=== PATIENT | female | born 1995 | race Caucasian/White ===

== ENCOUNTER 2023-07-08 15:19 | Outpatient (CLI) | payer MEDICAID, SELFPAY ==
[2023-07-08 18:50] LABS: Chlamydia DNA Amplified* NOT DETECTED (No Detected); GC DNA Amplified* NOT DETECTED (No Detected)
== END 2023-07-08 15:20 | disposition home or self-care (01) ==
PROVIDERS: Visit Provider Physician Assistant
DX: Z34.92 Encounter for supervision of normal pregnancy, unspecified, second trimester (principal); Z3A.15 15 weeks gestation of pregnancy
CPT/HCPCS: 76815; 86592; 86703; 86762; 86787; 86803; 86850; 86900; 86901; 87086; 87340; 87491; 87591

== ENCOUNTER 2023-08-05 12:55 | Outpatient (CLI) | payer MEDICAID, SELFPAY ==
--- NOTE | 2023-08-05 13:00 | CRLHL7_ITS ---
For Patients: As a result of the Century Cures Act, medical imaging exams and procedure reports are released immediately into your electronic medical record. You may view this report before your referring provider. If you have questions, please contact your health care provider. OB ULTRASOUND CLINICAL HISTORY: anatomy screen. LMP: 03/24/2023. HAYDER by LMP: 12/29/2023. GA: 19 w, 1 d. FINDINGS: position: Vertex. Cervix: Visualized. Technique: Transabdominal. Length of closed cervix: 3.5 cm. Placenta/cord: Posterior. Technique: Transabdominal. Placenta tip to internal OS: 3.3 cm. Umbilical Cord: 3-vessel cord. Placenta insertion: Central. Amniotic Fluid: 4.6 cm SDP (greater than/equal to: 2- less than 8 cm). SURVEY: Observed Structures Cerebellum: 1.9 cm, 19 w 2 d. Cisterna Magna: 3.1 mm. Nuchal Fold: 4.2 mm. Lateral Ventricle: 67 mm. CSP: Yes. Midline Falx: Yes. Choroid Plexus: Yes. Spine: Yes. Abdomen: Stomach: Yes. Abd Cord Insertion: Yes. Urinary Bladder: Yes. Kidneys: Yes. Diaphragm: Yes. Face: Nose/lips: Yes. Orbital view: Yes. Profile: Yes. Limbs: Upper Extremities: Yes. Lower Extremities: Yes. Hands: Yes. Feet: Yes. Vascular: Four-Chamber Heart: Yes. LVOT: Yes. RVOT: Yes. BPD: 4.0 cm. 18 w 1 d, 12 percent. HC: 15.2 cm. 18 w 1 d, 7 percent. AC: 12.6 cm. 18 w 1 d, 17 percent. FL: 2.7 cm. 18 w 0 d, 11 percent. FL/AC: 21.06 percent. HC/AC Ratio: 1.21. Heart rate: 144 beats per minute. age by this US: 18 w 2 d. HAYDER by this US: 01/04/2024. EFW: 224.96 g. Weight: 0 lbs, 8 oz. Percentile by HAYDER: 6 percent. IMPRESSION: 1. Single live intrauterine gestation. No gross anomalies visualized. 2. Estimated weight measures 225 grams which lies at the 6th percentile. Shandra Puga M.D. Diagnostic/Breast Radiologist [email or web address] Transcribed: 12:03 pm DW/Dictated by: Shandra Puga MD @ 08/06/2023 5:25:00 AM (Electronically Signed)
== END 2023-08-05 12:56 | disposition home or self-care (01) ==
LOC: US 12:55
PROVIDERS: Visit Provider Physician Assistant
DX: Z34.92 Encounter for supervision of normal pregnancy, unspecified, second trimester (principal); Z3A.19 19 weeks gestation of pregnancy
CPT/HCPCS: 76805

== ENCOUNTER 2023-09-02 13:06 | Outpatient (CLI) | payer MEDICAID, SELFPAY ==
--- NOTE | 2023-09-02 13:00 | CRLHL7_ITS ---
For Patients: As a result of the Century Cures Act, medical imaging exams and procedure reports are released immediately into your electronic medical record. You may view this report before your referring provider. If you have questions, please contact your health care provider. INDICATION: Growth restricted at anatomy scan COMPARISON: 08/05/2023 TECHNIQUE: Real time serrano scale imaging of the fetus was performed. FINDINGS: Sonographic imaging demonstrates a single living intrauterine gestation. Fetus demonstrates a regular cardiac rate of 142 beats per minute. Fetus has a variable position. The placenta lies posteriorly. Amniotic fluid volume appears normal and there is a single deepest vertical pocket: 4.8 cm. The estimated weight is 558gm which lies at the 37th %. On the prior OB ultrasound exam dated 08/05/2023 the estimated weight was at the 6th%. BPD 20th percentile. HC 22nd percentile. AC 63rd percentile. FL 13th percentile. The HC/AC ratio measures 1.09 range (1.05-1.21). IMPRESSION: Sonographic gestational age 22 weeks 6 days and sonographic due date 12/31/2023. Good correlation with dates. Estimated weight 37th percentile. Abdominal circumference 63rd percentile for Dictated by Steven Bowman MD @ 09/02/2023 2:38:41 PM (Electronically Signed)
== END 2023-09-02 13:07 | disposition home or self-care (01) ==
LOC: US 13:06
PROVIDERS: Visit Provider Obstetrics & Gynecology
DX: O36.5990 Maternal care for other known or suspected poor fetal growth, unspecified trimester, not applicable or unspecified (principal); Z3A.22 22 weeks gestation of pregnancy
CPT/HCPCS: 76816

== ENCOUNTER 2023-09-30 14:13 | Outpatient (CLI) | payer MEDICAID, SELFPAY | END 2023-09-30 14:14 | disposition home or self-care (01) | LOC: NFLDREF 10-04 21:42 | PROVIDERS: Visit Provider Obstetrics & Gynecology | DX: Z34.90 Encounter for supervision of normal pregnancy, unspecified, unspecified trimester (principal) | CPT/HCPCS: 86592 ==

== ENCOUNTER 2023-12-05 10:45 | Outpatient (CLI) | payer MEDICAID, SELFPAY | END 2023-12-05 10:46 | disposition home or self-care (01) | LOC: NFLDREF 12-09 11:14 | PROVIDERS: Visit Provider Obstetrics & Gynecology | DX: Z36.85 Encounter for antenatal screening for Streptococcus B (principal) | CPT/HCPCS: 87081; 87653 ==

== ENCOUNTER 2024-01-05 06:26 | Inpatient (IN) | payer MEDICAID, SELFPAY ==
[2024-01-05] VITALS (135 sets, daily range): BP systolic 73–169; BP diastolic 37–100; PULSE 67–104; RESP 16–17; TEMP 36.8–37.6; O2SAT 96–100; BMI 35.7
[2024-01-05 07:08] LABS: Basophils Absolute Auto 0.01 K/uL (0.00-0.30); Basophils Percent Auto 0.1 % (0.0-3.0); Eosinophils Absolute Auto 0.02 K/uL (0.00-0.50); Eosinophils Percent Auto 0.2 % (0.0-7.0); Hematocrit 32.7 % (33.0-51.0); Hemoglobin* 10.7 gm/dL (12.0-16.0); Immature Granulocytes Abs Auto 0.02 K/uL (0.00-0.30); Immature Granulocytes Pct Auto 0.2 %; Lymphocytes Absolute Auto 2.16 K/uL (0.90-2.90); Lymphocytes Percent Auto 25.7 % (20-44); Mean Corpuscular HGB Conc 33 gm/dL (32-36); Mean Corpuscular Hemoglobin 28 pg (26-34); Mean Corpuscular Volume 85 fL (80-100); Monocytes Percent Auto 6.4 % (0.0-11.0); Neutrophils Absolute Auto 5.65 K/uL (1.7-7.0); Neutrophils Percent Auto 67.4 % (42.0-72.0); Platelet Count* 300 K/uL (140-440); RDW Coefficient of Variation % 14.5 % (11.5-15.5); Red Blood Count 3.86 m/uL (4.00-5.20)
[2024-01-05 07:21] LABS: Slide Review Reflex No
[2024-01-05 07:47] LABS: Alanine Aminotransferase* 20 U/L (4-35); Aspartate Amino Transferase* 32 U/L (12-35); Blood Urea Nitrogen* 12 mg/dL (5-24); Creatinine* 0.6 mg/dL (0.5-1.5); Est. Creatinine Clearance* 109.42; Estimated Glomerular Filt Rate 125 ml/min
--- NOTE | 2024-01-05 07:48 | W.PM.LDBA ---
Subjective History of Present Illness Date Seen: 01/05/24 Narrative: Patient is being admitted to Labor and Delivery for IOL for post term dates . She is a 28 year old at 41 0/7 weeks gestation. Her full history and physical was dictated by Dr. ADAMSON on 12/14/23. Please see this for details. Specific Issues/Plans Significant other: Davi. Baby: Boy! Yogi H&P completed by SN[facility] on 12/14/2023 1. Late to care, 1st visit 15+1 2. History of depression / anxiety, has never been on medication 3. Obesity, BMI 31.3 Hemoglobin A1c: 4.7% ASA 81 mg 4. Sister's daughter: Cleft lip 5. Growth Restriction (Resolved), EFW 6% on anatomy US at 19w1d - Reliable dating by LMP (certain) consistent with 15 week US - No anatomic anomalies - Past medical and social history reviewed, no reported risk factors - Level 2 US with [facility] [place] 08/16/23: EFW 18%, AC 35%. Posterior placenta without previa. Normal anatomy. - Repeat US for growth 23 weeks here: EFW 37%, AC 63%. 6. GERD. Omeprazole 20 mg sent 09/02/23. 7. 07/08/2023 Pap at her 1st visit: Normal with positive HPV for other high risk types or types Pap at her 6 week visit with HPV Co-testing If the Pap is abnormal or the HPV is positive she should have a colposcopy. Flu: declines Tdap: Given, 10/21/23 RSV: Given on 11/07/2023 OB - Problem Based A/P Additional Plan (1) Encounter for induction of labor: Status: Acute Plan 1. IOL due to post term dates, favorable cervix, GBS negative. AROM and start oxytocin. 2. Elevated blood pressure upon admission, will collect preeclampsia labs and continue close monitoring of vital signs. 3. Patient plans to get epidural for pain management. OB Result Labs Labs: Hgb:10.7mg/dL. Normal platelets Chemistry pending OB Exam Physical Exam Vital signs: Pulse BP 75 136/93 H 01/05/24 07:28 01/05/24 07:28 Detailed Labor and Delivery Exam Patient Gravid: Yes Dilation (cm): 5 Effacement (%): 90 Cervix position: anterior Consistency: soft Tachysystole: No Contraction intensity: Mild Fetus (Single) Station: -1 Amniotic Membrane Status: AROM Amniotic Membrane Fluid Description: Clear Heart Rate Baseline: 120 Monitor Accelerations: Present Monitor Decelerations: Variable (Once during AROM) Newspaper Carriers Supervisor Variability: Moderate (6-25)
[2024-01-05] MEDS: OXYTOCIN 30 unit/500 ML in NS 30 UNIT/500 ML BAG IVPB (08:03)
[2024-01-05] MEDS: LACTATED RINGERS 1000 ML 1,000 ML 125 ML IV (08:05)
[2024-01-05] MEDS: LABETALOL HCL 5 MG/ML inj IVP (11:19)
[2024-01-05] MEDS: ROPIVACAINE 0.2% 100 ml 100 ML 12 MG EPIDURAL ×2 (11:21→19:33)
[2024-01-05] MEDS: LACTATED RINGERS 1000 ML 1,000 ML 75 ML IV ×2 (11:25→15:39)
[2024-01-05] MEDS: MAGNESIUM IV 4 GM/100 ML PIGGYBACK IVPB (11:41)
[2024-01-05] MEDS: PHENYLEPHRINE 100 MCG/ML SYRINGE IVP ×3 (12:01→13:08)
--- NOTE | 2024-01-05 12:13 | PM.ANBPRC ---
[facility] Medical History Anxiety ?F41.9 - Anxiety disorder, unspecified (ICD-10) Depression ?F32.A - Depression, unspecified (ICD-10) Surgical History H/O foot surgery ?Z98.890 - Other specified postprocedural states (ICD-10) Family History Maternal Grandmother High blood pressure Paternal Grandmother Diabetes Paternal Grandfather Diabetes Aunt Diabetes Social History Narrative: History of blood transfusion: No. 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 Marital status: Significant other. Hinduism/cultural needs: no. Chemical or radiation exposure: no. Pre- tobacco use: no. Pre- alcohol use: no. Current tobacco use: no. Current alcohol use: no. Recreational drug use: no. Dietary restrictions: no. Blood transfusion acceptable in an emergency: yes. PSYCHOSOCIAL HISTORY: History of depression or currently depressed: Yes, history. Current or past physical, emotional, or sexual mistreatment: No. Problems that will make it hard to make it to appointments: No. What is your current living situation?: I presently have a place to live Problems where you live: no known problems In the past 12 months, utilities in danger of being shut off: no In past 12 months, lack of transportation kept you from medical appts, meetings, work, or getting things needed for daily living: no In the past 12 mos, have been you worried that your food would run out before you had money to buy more?: never true In the past 12 mos, the food you bought just didn't last and you didn't have money to buy more?: never true Smoking Status: Never smoker How often does anyone, including family, friends and others, physically hurt you: never How often does anyone, including family, friends and others, insult or talk down to you: never How often does anyone, including family, friends and others, threaten you with harm: never How often does anyone, including family, friends and others, scream or curse at you: never Little interest or pleasure in doing things: not at all Feeling down, depressed, or hopeless: not at all Meds Home Medications and Allergies Home Medications Medication Instructions Recorded Confirmed Type vits 75-iron 28 mg-folic pkg PO DAILY 08/05/23 01/02/24 History acid 800 mcg-omega-3 oral combo pack (One A Day Women's DHA) aspirin 81 mg tablet,delayed 81 mg PO QDAY 09/02/23 01/02/24 History release (Adult Low Dose Aspirin) Allergies Allergy/AdvReac Type Severity Reaction Status Date / Time No Known Drug Allergies Allergy Verified 01/02/24 08:12 Results Labs Labs: Laboratory Results - last 24 hr 01/05/24 07:01 WBC 8.40 RBC 3.86 L Hgb 10.7 L Hct 32.7 L MCV 85 MCH 28 MCHC 33 RDW Coeff of Clyde 14.5 Plt Count 300 Neut % (Auto) 67.4 Lymph % (Auto) 25.7 [place] % (Auto) 6.4 Eos % (Auto) 0.2 Baso % (Auto) 0.1 Neut # (Auto) 5.65 Lymph # (Auto) 2.16 [place] # (Auto) 0.50 Eos # (Auto) 0.02 Baso # (Auto) 0.01 Abs Immat Gran (auto) 0.02 Imm/Tot Granulo (auto) 0.2 BUN 12 Creatinine 0.6 Estimated Creat Clear 109.42 Estimated GFR 125 AST 32 ALT 20 Blood Type B Positive Antibody Screen NEGATIVE Vital Signs Vital Signs: Last Vital Signs Temp 98.8 F 01/05/24 10:08 Pulse 82 01/05/24 12:13 Resp 16 01/05/24 10:08 BP 99/54 L 01/05/24 12:13 Pulse Ox 100 01/05/24 12:03 Weight: 88.723 kg Height: 157.48 cm Anesthesia Procedures Epidural Insertion Patient Location: OB Start Time: 10:45 Stop Time: 11:45 Start Date: 01/05/24 Stop Date: 01/05/24 Reason for Block: procedure for pain Patient Position: sitting Performed By: Coral Meraz Preanesthetic Checklist: IV checked, risks and benefits discussed, monitors and equipment checked, timeout performed and anesthesia consent Prep: chlorhexidine gluconate Monitoring: blood pressure monitoring, continuous pulse oximetry and heart rate Approach: midline Vertebral Space: lumbar (1-5) Epidural Technique: RIO saline Needle Type: Tuohy needle Injection Technique: continuous catheter Needle gauge: 17 Needle Length (cm): 10 cm Needle Insertion Depth (cm): 8 Catheter Gauge: 19 Catheter Type: multi-orifice Catheter at skin depth (cm): 15 Test Dose Result: negative and lidocaine 1.5% with epinephrine 1 to 200,000
[2024-01-05] MEDS: ePHEDrine sulfate 5 MG/ML inj 10 MG IVP ×2 (12:14→12:27)
[2024-01-05] MEDS: MAGNESIUM Infusion 40 GM/1,000 ML IV.SOLN IVPB (12:16)
[2024-01-05 13:11] LABS: Hematocrit 31.9 % (33.0-51.0); Hemoglobin* 10.4 gm/dL (12.0-16.0); Mean Corpuscular HGB Conc 33 gm/dL (32-36); Mean Corpuscular Hemoglobin 28 pg (26-34); Mean Corpuscular Volume 86 fL (80-100); Platelet Count* 282 K/uL (140-440); Red Blood Count 3.71 m/uL (4.00-5.20); White Blood Count* 12.74 K/uL (4.50-11.00)
[2024-01-05 13:12] LABS: Slide Review Reflex No
[2024-01-05 13:28] LABS: Alanine Aminotransferase* 18 U/L (4-35); Aspartate Amino Transferase* 28 U/L (12-35); Blood Urea Nitrogen* 11 mg/dL (5-24); Creatinine* 0.6 mg/dL (0.5-1.5); Est. Creatinine Clearance* 109.42; Estimated Glomerular Filt Rate 125 ml/min
[2024-01-05 15:00] LABS: Creatinine Urine 323.4 mg/dL
[2024-01-05 15:06] LABS: Total Protein Urine 461 mg/dL
--- NOTE | 2024-01-05 16:35 | P.OBPN_ITS ---
Subjective Date Seen: 01/05/24 Narrative: Okay Objective Vital Signs: Last Vital Signs Temp 98.3 F 01/05/24 15:43 Pulse 71 01/05/24 16:23 Resp 16 01/05/24 15:43 BP 120/66 01/05/24 16:23 Pulse Ox 100 01/05/24 12:03 Pelvic Exam Dilation (cm): 7 Effacement (%): 95 Station: 0 Contractions Monitor mode: External Contraction pattern: Regular Contraction intensity: Mild Pitocin Rate (mU/min): 1 Assessment Assessment: induction ongoing Station: 0 Amniotic Membrane Status: AROM Status: Category ll Heart Rate Baseline: 120 Nursing Home Variability: Minimal (3-5) Monitor Accelerations: Present Monitor Decelerations: Variable (Once during AROM) Tracing Comments: NST had sporadic not significant variable decelerations since admission. At around 11am today patient's blood pressures were persistently severely elevated and had to be treated with IV Labetalol and magnesium sulfate infusion was also started. At the same time patient had epidural placement and significant decrease of her blood pressures. NST now showing periods of minimal variability and at around 11:56 am it seemed to have had a prolonged decelerations down to the 80s, this lasted for about 5 minutes, but you can tell accelerations and variability at this time. During this deceleration patient's blood pressure was low and treated with phenylephrine. Since then NST has had episodes of minimal variability and variables that have resolved with position changes. Maternal Status: Stable Plan Plan: 1. Since my last note patient has been diagnosed with preeclampsia with severe features due to severely elevated blood pressures that have been treated with IV Labetalol (so far once) and P/C ratio of 1.4. Patient is currently receiving magnesium sulfate infusion for seizure prophylaxis, will plan to keep during labor and 24 hours . Will continue HELLP labs every 6 hours. She had Seo catheter placed at around 12pm and in the last 5 hours her urine output has only been 150mL (30mL/hr), urine is lupe in color. So far, kidney and liver function normal. She will be due for repeat labs at 7pm and will add Magnesium levels. Currently, no evidence of magnesium toxicity. 2. IOL, s/p AROM and currently titrating IV Oxytocin, last cervical check she was 7cm, will re check her at around 5:30 pm today.
[2024-01-05 18:35] LABS: Hematocrit 34.5 % (33.0-51.0); Hemoglobin* 11.1 gm/dL (12.0-16.0); Mean Corpuscular HGB Conc 32 gm/dL (32-36); Mean Corpuscular Hemoglobin 28 pg (26-34); Mean Corpuscular Volume 86 fL (80-100); Platelet Count* 296 K/uL (140-440); Red Blood Count 4.03 m/uL (4.00-5.20); White Blood Count* 14.05 K/uL (4.50-11.00)
[2024-01-05 18:49] LABS: Slide Review Reflex No
[2024-01-05 18:50] LABS: Alanine Aminotransferase* 20 U/L (4-35); Aspartate Amino Transferase* 34 U/L (12-35); Blood Urea Nitrogen* 12 mg/dL (5-24); Creatinine* 0.7 mg/dL (0.5-1.5); Est. Creatinine Clearance* 93.79; Estimated Glomerular Filt Rate 120 ml/min
[2024-01-05 18:59] LABS: Magnesium* 6.4 mg/dL (1.5-2.6)
--- NOTE | 2024-01-05 23:42 | PM.OBPNL ---
Subjective Date Seen: 01/05/24 Narrative: Okay Objective Vital Signs: Last Vital Signs Temp 99.3 F 01/05/24 21:42 Pulse 88 01/05/24 23:38 Resp 16 01/05/24 21:42 BP 104/58 L 01/05/24 23:38 Pulse Ox 98 01/05/24 22:25 Pelvic Exam Dilation (cm): Rim Effacement (%): 100 Station: 0, +1 with pushing Contractions Monitor mode: Internal Contraction pattern: Regular Contraction intensity: Strong/Firm Pitocin Rate (mU/min): 13 Assessment Assessment: induction ongoing Station: 0 Amniotic Membrane Status: AROM Status: Category ll Heart Rate Baseline: 135 Assistant Operator Variability: Moderate (6-25) Monitor Accelerations: Present Monitor Decelerations: Variable (Once during AROM) Maternal Status: Blood pressures have remained under control. Plan Plan: Tiffany has progressed very slowly to 9.5cm. I checked her at around 7:30pm and recommended placement of IUPC and MVUs were not adequate. Tracing did improve and we have been able to increase oxytocin. At around 9:30pm I rechecked her and found only a rim on her left anterior cervix we did some practice pushes to try to reduce cervix, she pushes very well but I was unable to reduce cervix. We then attempted additional position changes and again attempted to reduce cervix with effective pushing and contractions. Baby is asynclitic, and no movement noted. Bedside US confirms persistent LOT position. I have recommended to proceed with delivery. We discussed how procedure is performed, risks of surgery such as bleeding and needing an emergency blood transfusion, infection, damage to nearby organs, blood clots. Discussed interventions to decrease risks. Discussed family centered approach. Briefly discussed differences in terms of recovery after surgical intervention. Informed consent reviewed and signed by patient. Will proceed with surgery.
[2024-01-05] MEDS: AZITHROMYCIN 500 MG in 0.9 % SODIUM CHLORIDE 250 ml 250 ML 255 MG IVPB (23:44)
[2024-01-06] VITALS (74 sets, daily range): BP systolic 112–169; BP diastolic 69–106; PULSE 67–91; RESP 16–17; TEMP 36.6–36.9; O2SAT 95–99
[2024-01-06] MEDS: CEFAZOLIN 2 GM INJ IVP
--- NOTE | 2024-01-06 | PM.OBPRCCS ---
OB Delivery Proc Additional Procedures Tubal Ligation at the time of : No Other: No Procedure Time Seen by Provider: : Date of procedure: 01/07/24 Pre-op diagnosis: Arrest of dilation, post dates induction, preeclampsia with severe features Post-op diagnosis: same Procedure Done: Global Will [facility] bill your pro fee for this procedure?: Yes Blood Loss Measurement Type: QBL (395) Bakri Used: No IV fluids (mL): 2,000 Urine Output (mL): 150 Urine Output Comment: 150 concentrated urine at the end of procedure, clear urine in the tube Surgeon: Senthil Schreiber MD Anesthesia Type: Epidural Findings: FINDINGS: Live-born male infant, vertex LOT presentation, Apgars 8 and 9 at 1 and 5 minutes respectively. weight 7 lb 11 oz. Procedure Name: Primary low transverse section Procedure Description: PROCEDURE: After obtaining informed consent, the patient was taken to the operating room where epidural anesthesia was obtained and found to be adequate. She was prepared and draped in the normal sterile fashion in the dorsal supine position with a leftward tilt. A Pfannenstiel skin incision was made with a scalpel about 2 cm above symphysis pubic bone, 10-12 cm in length. This incision was carried down to the underlying layer of fascia with the Bovie and scalpel. The fascia was incised in the midline and the incision extended laterally. The rectus muscles were then in the midline. The Jhonatan O retractor was then placed into the incision. The lower uterine segment was then incised in a transverse fashion with the scalpel. Upon entry into the uterus, clear amniotic fluid was noted. The uterine incision was extended cephalo caudally with blunt finger fractionation. The infant's head was delivered atraumatically, followed by the remainder of the 's body. The nose and mouth were suctioned with the bulb suction. The umbilical cord was noted to avulse while presenting baby to parents, this was grasped immediately and clamped. The infant was handed off the field to the warmer for evaluation. The umbilical cord was noted to be very short. The placenta was delivered spontaneously with umbilical cord traction and fundal massage. The uterus was cleared of all clots and debris. The uterine incision was reapproximated in a running locking fashion with a 0 Vicryl suture. A 2nd layer of the same suture was used to imbricate in horizontal fashion. The gutters were inspected and cleared of blood clot. All instruments and retractors were removed. Peritoneum reapproximated with Vicryl 3-0. The subfascial tissues were carefully inspected and hemostasis assured. The fascia was reapproximated in a running fashion with a looped 0 Vicryl suture. The subcutaneous tissues were inspected and hemostasis was assured. The subcutaneous fat layer was reapproximated with interrupted sutures of 3-0 Vicryl. The skin was closed in a subcuticular fashion with 4-0 Monocryl. LiquiBand and dressing were applied. The patient tolerated the procedure well. Sponge, lap, needle, and instrument counts were reported as correct x2. The patient was taken to the recovery room, awake, and in stable condition. She did receive 3 grams of IV Ancef and 500mg of Azithromycin preoperatively. Will continue magnesium maintenance infusion for 24 hours . Complications: None Pathology: specimen obtained, sent to pathology (Placenta) Surgery Debrief Performed: Yes Condition: stable Disposition: floor
[2024-01-06] MEDS: LACTATED RINGERS 1000 ML 1,000 ML 50 ML IV ×2 (00:46→00:48)
--- NOTE | 2024-01-06 01:51 | P.ANES_ITS ---
Anesthesia Charges Start Date/Time Anesthesia Start Date: 01/06/24 Anesthesia Start Time: 00:10 Stop Date/Time Anesthesia Stop Date: 01/06/24 Anesthesia Stop Time: 01:45 Summary Emergency: LIABILITY CLAIMS ADJUSTER
--- NOTE | 2024-01-06 01:52 | P.NB_ITS ---
Nerve Block Nerve Block Time Seen by Provider: 01:30 Date Seen: 01/06/24 Type of block requested by surgeon for post-operative analgesia: TAP Side: bilateral Time out performed: Yes Verification of patient name: Yes Verification of date of : Yes Site marking: site marked Name of person performing procedure: Maikol Deborah Continuous monitoring Was continuous monitoring of O2 sat, B/P, clinical research monitor, recorded every 15 minutes?: Yes Procedure Checklist: sterile prep, needles and gloves Ultrasound guided. Images saved: Yes Medications given in 5ml increments after negative aspiration: Marcaine %: 0.25 mL: 30 Needle gauge: 21 and Exparel mL: 10 Needle gauge: 21 Patient tolerated procedure well: Yes Additional comments: Injected in 5mL increments after negative aspiration Block Charges Block Charge (with Pro Fee): TAP Bilateral Use of Ultrasound Machine for Block: Yes- US Guidance/pain block
[2024-01-06] MEDS: LABETALOL HCL 5 MG/ML inj IVP ×4 (03:24→08:46)
[2024-01-06 03:40] LABS: Hematocrit 33.9 % (33.0-51.0); Hemoglobin* 11.2 gm/dL (12.0-16.0); Mean Corpuscular HGB Conc 33 gm/dL (32-36); Mean Corpuscular Hemoglobin 28 pg (26-34); Mean Corpuscular Volume 85 fL (80-100); Platelet Count* 310 K/uL (140-440); White Blood Count* 22.42 K/uL (4.50-11.00)
[2024-01-06 03:42] LABS: Slide Review Reflex No
[2024-01-06 03:55] LABS: Alanine Aminotransferase* 19 U/L (4-35); Aspartate Amino Transferase* 36 U/L (12-35); Blood Urea Nitrogen* 12 mg/dL (5-24); Creatinine* 0.7 mg/dL (0.5-1.5); Est. Creatinine Clearance* 93.79; Estimated Glomerular Filt Rate 120 ml/min
[2024-01-06 03:58] LABS: Magnesium* 7.5 mg/dL (1.5-2.6)
[2024-01-06] MEDS: LACTATED RINGERS 1000 ML 1,000 ML 75 ML IV (04:07)
[2024-01-06] MEDS: NIFEdipine 30 MG TAB.ER.24 PO ×2 (06:51→08:52)
[2024-01-06 07:20] LABS: Hematocrit 31.4 % (33.0-51.0); Hemoglobin* 10.2 gm/dL (12.0-16.0); Mean Corpuscular HGB Conc 33 gm/dL (32-36); Mean Corpuscular Hemoglobin 28 pg (26-34); Mean Corpuscular Volume 85 fL (80-100); Platelet Count* 308 K/uL (140-440); Red Blood Count 3.68 m/uL (4.00-5.20); White Blood Count* 22.68 K/uL (4.50-11.00)
[2024-01-06 07:21] LABS: Slide Review Reflex No
[2024-01-06] MEDS: KETOROLAC 30 MG/ML inj IVP ×3 (07:48→19:29)
[2024-01-06] MEDS: diphenhydrAMINE 50 MG/ML inj 12.5 MG IVP (08:08)
[2024-01-06 08:32] LABS: Alanine Aminotransferase* 18 U/L (4-35); Aspartate Amino Transferase* 35 U/L (12-35); Blood Urea Nitrogen* 12 mg/dL (5-24); Creatinine* 0.7 mg/dL (0.5-1.5); Est. Creatinine Clearance* 93.79; Estimated Glomerular Filt Rate 120 ml/min
[2024-01-06 08:38] LABS: Magnesium* 6.8 mg/dL (1.5-2.6)
[2024-01-06] MEDS: DOCUSATE SODIUM 100 MG CAPSULE PO (09:40)
[2024-01-06] MEDS: LABETALOL HCL 100 MG TABLET 200 MG PO ×2 (09:40→20:48)
[2024-01-06] MEDS: MAGNESIUM Infusion 40 GM/1,000 ML IV.SOLN IVPB (10:09)
--- NOTE | 2024-01-06 12:19 | PM.OBPNVD1 ---
OB - PN:Subj Subjective Time Seen by Provider: 09:10 Date Seen: 01/06/24 Interval history: SUBJECTIVE The patient feels tired on magnesium due to severe preeclampsia, her magnesium was decreased to 1 gram/hour overnight due to oliguria and magnesium level of greater than 7. The pain is well controlled with current medications. She has no new complaints. Seo is in place. She has good appetite, is tolerating a regular, is not passing flatus, and has not had a bowel movement. There is scan amount of rubra lochia. She has not been ambulating. SCDs are in place Breast feeding without difficulty. Preeclampsia labs 7:00 a.m. Hemoglobin 10.2, platelets 308, BUN 12, creatinine 0.7, AST 35, ALT 18 magnesium 6.8. Postop hgb is 10.2. Iron supplementation not needed. OBJECTIVE: Vital Signs: See EMR MOOD: appropriate CHEST: clear to auscultation HEART: regular rate and rhythm ABDOMEN: soft, non-tender the uterine fundus is 1 cm below Umbilicus, Midline and is appropriate for the stage of recovery. INCISION: Dressing is clean, dry and intact EXTREMITIES: normal and minimal edema. SCD's in place. NEUROLOGIC: 3+/2 bilateral lower extremity patellar DTRs with 1-2 beats of clonus ASSESSMENT [age] year old who is: 1. Postoperative day # 1 from a primary low-transverse 2. Severe preeclampsia due to blood pressure criteria 3. Breastfeed feeding PLAN 1. Continue routine postoperative cares. 2. Has received 3 doses of IV labetalol since delivery as of 9:00 a.m. on 01/06/2024. She has been started on nifedipine ER 60 mg p.o. b.i.d. and labetalol 200 mg p.o. b.i.d. 3. Continue magnesium until the patient is 24 hours which is at 12:34 a.m. on 11/06/2024. Continue at 1 gram/hour as her magnesium level has been adequate for seizure prophylaxis at this dose. 4. Continue to closely monitor urine output. 5. Repeat preeclampsia labs tomorrow morning: Ordered OB - PN: Obj Exam Physical Exam: Vital signs: Temp Pulse Resp BP Pulse Ox O2 Del Method 98.1 F 81 16 123/83 95 Room Air 01/06/24 07:50 01/06/24 12:07 01/06/24 09:53 01/06/24 12:07 01/06/24 07:50 01/06/24 07:50 Urinary Catheter Management: Urethral: Cath placed during this visit: yes Urethral indwelling: Yes Reason for continuing: surgical procedure Insertion date: 01/05/24 Insertion time: 23:51 OB - PN: Obj Data Labs Labs: Laboratory Results - last 24 hr 01/05/24 01/05/24 01/05/24 13:01 14:14 18:28 WBC 12.74 H 14.05 H RBC 3.71 L 4.03 Hgb 10.4 L 11.1 L Hct 31.9 L 34.5 MCV 86 86 MCH 28 28 MCHC 33 32 Plt Count 282 296 BUN 11 12 Creatinine 0.6 0.7 Estimated Creat Clear 109.42 93.79 Estimated GFR 125 120 Magnesium 6.4 H* AST 28 34 ALT 18 20 Urine Creatinine 323.4 Protein/Creatinin Ratio 1.40 H Urine Total Protein 461 01/06/24 01/06/24 03:30 06:58 WBC 22.42 H 22.68 H RBC 4.00 3.68 L Hgb 11.2 L 10.2 L Hct 33.9 31.4 L MCV 85 85 MCH 28 28 MCHC 33 33 Plt Count 310 308 BUN 12 12 Creatinine 0.7 0.7 Estimated Creat Clear 93.79 93.79 Estimated GFR 120 120 Magnesium 7.5 H* 6.8 H* AST 36 H 35 ALT 19 18 Urine Creatinine Protein/Creatinin Ratio Urine Total Protein OB - PN: A/P Delivery Assessment and Plan (1) Encounter for induction of labor: Status: Acute
[2024-01-06 12:55] LABS: Hematocrit 28.4 % (33.0-51.0); Hemoglobin* 9.4 gm/dL (12.0-16.0); Mean Corpuscular HGB Conc 33 gm/dL (32-36); Mean Corpuscular Hemoglobin 28 pg (26-34); Mean Corpuscular Volume 85 fL (80-100); Platelet Count* 277 K/uL (140-440); Red Blood Count 3.33 m/uL (4.00-5.20); White Blood Count* 21.35 K/uL (4.50-11.00)
[2024-01-06 12:59] LABS: Slide Review Reflex No
[2024-01-06 13:26] LABS: Alanine Aminotransferase* 17 U/L (4-35); Aspartate Amino Transferase* 33 U/L (12-35); Blood Urea Nitrogen* 14 mg/dL (5-24); Creatinine* 0.9 mg/dL (0.5-1.5); Est. Creatinine Clearance* 72.95; Estimated Glomerular Filt Rate 89 ml/min
[2024-01-06 13:34] LABS: Magnesium* 6.6 mg/dL (1.5-2.6)
[2024-01-06] MEDS: NIFEdipine 30 MG TAB.ER.24 60 MG PO (20:49)
[2024-01-07] VITALS (7 sets, daily range): BP systolic 113–125; BP diastolic 77–85; PULSE 86–100; RESP 16–18; TEMP 36.7–37.2; O2SAT 95–99
[2024-01-07] MEDS: KETOROLAC 30 MG/ML inj IVP ×2 (01:45→07:51)
[2024-01-07 04:09] LABS: Rapid Plasma Reagin (RPR) Non Reactive (Non Reactive)
[2024-01-07 07:46] LABS: Hematocrit 29.6 % (33.0-51.0); Hemoglobin* 9.8 gm/dL (12.0-16.0); Mean Corpuscular HGB Conc 33 gm/dL (32-36); Mean Corpuscular Hemoglobin 28 pg (26-34); Mean Corpuscular Volume 86 fL (80-100); Platelet Count* 269 K/uL (140-440); Red Blood Count 3.45 m/uL (4.00-5.20); White Blood Count* 14.74 K/uL (4.50-11.00)
[2024-01-07 07:51] LABS: Slide Review Reflex No
[2024-01-07 08:06] LABS: Aspartate Amino Transferase* 40 U/L (12-35); Blood Urea Nitrogen* 12 mg/dL (5-24); Creatinine* 0.6 mg/dL (0.5-1.5); Est. Creatinine Clearance* 109.42; Estimated Glomerular Filt Rate 125 ml/min
[2024-01-07 08:07] LABS: Alanine Aminotransferase* 20 U/L (4-35)
[2024-01-07] MEDS: NIFEdipine 30 MG TAB.ER.24 60 MG PO ×2 (09:23→20:35)
[2024-01-07] MEDS: ENOXAPARIN 40 MG/0.4 ML INJ SUBCUT (09:24)
[2024-01-07] MEDS: DOCUSATE SODIUM 100 MG CAPSULE PO (09:24)
[2024-01-07] MEDS: LABETALOL HCL 100 MG TABLET 200 MG PO ×2 (09:24→20:36)
--- NOTE | 2024-01-07 10:04 | PM.OBPNVD1 ---
OB - PN:Subj Subjective Date Seen: 01/07/24 Interval history: Tiffany is a 28 y.o. who was admitted to [facility] for of labor due to post-term dates. Upon admission patient found with elevated blood pressures and eventually diagnosed with preeclampsia with severe features. Magnesium sulfate infusion started during labor and completed 24 hours after delivery at around 12:00 a.m. today. ?She had an uncomplicated .?The patient feels well. ?The pain is well controlled with current medications. ?She has no new complaints. ?She is breast feeding and reports things are better than yesterday.? the patient has done well. She has remained afebrile.? Has a good appetite, is tolerating a general diet. ?She is voiding without difficulty.? She is passing gas and has not had a bowel movement.? She is ambulating and denies any dizziness.? Has Small amount of rubra lochia. Blood pressures have significantly improved. 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 Patient comments OB post-: pain well controlled, tolerating diet and flatus present [place] infant status: and doing well feeding status: breast and bottle feeding OB - PN: Obj Exam Physical Exam: Vital signs: Temp Pulse Resp BP Pulse Ox O2 Del Method 98.1 F 93 16 124/84 95 Room Air 01/07/24 07:55 01/07/24 07:55 01/07/24 07:55 01/07/24 07:55 01/07/24 07:55 01/07/24 07:55 Narrative: VITAL SIGNS: As noted above. GENERAL APPEARANCE: Alert, cooperative female in no acute distress. MOOD & AFFECT: Normal. HEART: Regular rate and rhythm without murmurs. LUNGS: Lungs are clear to auscultation bilaterally. No crackles, wheezes, or rhonchi. ABDOMEN: Positive bowel sounds, incision healing well, no surrounding erythema, induration or abnormal discharge. : Normal lochia. EXTREMITIES: Bilateral pitting edema +1. Well perfused. Nontender. NEURO: Intact. Urinary Catheter Management: Urethral: Cath placed during this visit: yes, but has since been removed by the nurse Urethral indwelling: Yes Reason for continuing: surgical procedure Insertion date: 01/05/24 Insertion time: 23:51 Removal date: 01/07/24 Removal time: 00:53 OB - PN: Obj Data Labs Labs: Laboratory Results - last 24 hr 01/05/24 01/06/24 01/07/24 07:01 12:48 07:32 WBC 21.35 H 14.74 H RBC 3.33 L 3.45 L Hgb 9.4 L 9.8 L Hct 28.4 L 29.6 L MCV 85 86 MCH 28 28 MCHC 33 33 Plt Count 277 269 BUN 14 12 Creatinine 0.9 0.6 Estimated Creat Clear 72.95 109.42 Estimated GFR 89 125 Magnesium 6.6 H* AST 33 40 H ALT 17 20 RPR Screen Non Reactive OB - PN: A/P Delivery Assessment and Plan (1) Severe preeclampsia: Problem details: By BP criteria Status: Acute Assessment and Plan: Vital signs stable, will continue Procardia extended release 60 mg twice a day, labetalol 200 mg twice a day. Will continue close monitoring of vital signs. Labs this morning: Platelets [id number], AST: 40 previously 33, ALT: 20 previously 17. Creatinine: 0.6 previously 0.9. She has continued diuresing and is down 6 kilos at the moment. Will continue current management, will plan to repeat a set of labs in the morning on 01/08/2024. (2) S/P primary low transverse : Status: Acute Assessment and Plan: Continue routine postop cares. (3) Anemia due to acute blood loss: Status: Acute Assessment and Plan: Asymptomatic, will continue with vitamins and oral iron. Plan day: 1 Plan: routine care
[2024-01-07] MEDS: ACETAMINOPHEN 500 MG TABLET 1000 MG PO (15:44)
[2024-01-07] MEDS: IBUPROFEN 600 MG TABLET PO (20:36)
[2024-01-08 01:08] VITALS: BP 127/83; PULSE 102; RESP 18; TEMP 36.7; O2SAT 99
[2024-01-08 04:38] VITALS: BP 119/81; PULSE 93; RESP 18; TEMP 37.1
[2024-01-08] MEDS: ACETAMINOPHEN 500 MG TABLET 1000 MG PO ×2 (04:40→13:47)
[2024-01-08 08:40] LABS: Basophils Percent Auto 0.2 % (0.0-3.0); Eosinophils Percent Auto 0.2 % (0.0-7.0); Hematocrit 31.7 % (33.0-51.0); Hemoglobin* 10.1 gm/dL (12.0-16.0); Immature Granulocytes Pct Auto 0.2 %; Lymphocytes Percent Auto 13.9 % (20-44); Mean Corpuscular HGB Conc 32 gm/dL (32-36); Mean Corpuscular Hemoglobin 27 pg (26-34); Mean Corpuscular Volume 86 fL (80-100); Monocytes Percent Auto 4.2 % (0.0-11.0); Neutrophils Percent Auto 81.3 % (42.0-72.0); Platelet Count* 311 K/uL (140-440); RDW Coefficient of Variation % 15.3 % (11.5-15.5); Red Blood Count 3.68 m/uL (4.00-5.20); White Blood Count* 12.72 K/uL (4.50-11.00)
[2024-01-08 08:41] LABS: Slide Review Reflex No
[2024-01-08 08:42] VITALS: BP 128/89; PULSE 90; RESP 16; TEMP 36.6; O2SAT 96
[2024-01-08 08:56] LABS: Alanine Aminotransferase* 30 U/L (4-35); Aspartate Amino Transferase* 51 U/L (12-35); Blood Urea Nitrogen* 7 mg/dL (5-24); Creatinine* 0.5 mg/dL (0.5-1.5); Estimated Glomerular Filt Rate 130 ml/min
[2024-01-08] MEDS: DOCUSATE SODIUM 100 MG CAPSULE PO (09:06)
[2024-01-08] MEDS: ENOXAPARIN 40 MG/0.4 ML INJ SUBCUT (09:06)
[2024-01-08] MEDS: NIFEdipine 30 MG TAB.ER.24 60 MG PO (09:07)
[2024-01-08] MEDS: LABETALOL HCL 100 MG TABLET 200 MG PO (09:07)
--- NOTE | 2024-01-08 09:15 | PM.OBDSVD1 ---
DS: Providers Provider Date Seen: 01/08/24 Date of admission: 01/05/24 06:26 Primary care physician: Not a Local Provider Admitting Clinician: Sravani Schreiber MD Attending Physician on discharge: Sravani Schreiber MD Date of Discharge: 01/08/24 DS: Diagnosis Discharge Diagnosis (1) Severe preeclampsia: Status: Acute Problem details: By BP criteria (2) S/P primary low transverse : Status: Acute (3) Anemia due to acute blood loss: Status: Acute Exam Narrative: Exam Narrative: VITAL SIGNS: As noted above. GENERAL APPEARANCE: Alert, cooperative female in no acute distress. HEART: Regular rate and rhythm without murmurs. LUNGS: Lungs are clear to auscultation bilaterally. No crackles, wheezes, or rhonchi. ABDOMEN: Soft, non-distended and appropriately tender, incision healing well without surrounding erythema or abnormal discharge. : Normal lochia. EXTREMITIES: Improved, bilateral trace edema. Well perfused. Nontender. NEURO: Intact. Const: Vital Signs, click to edit/add: Vital Signs - 24 hr 01/07/24 11:35 01/07/24 15:41 01/07/24 19:09 Temperature 98.0 F 98.9 F Pulse Rate [Blood Pressure Cuff] 91 96 100 Respiratory Rate 16 18 18 Blood Pressure [Ri ght Arm] 113/77 119/84 125/85 Pulse Oximetry 97 99 98 Oxygen Delivery Me thod Room Air Room Air Room Air 01/08/24 01:08 01/08/24 04:38 01/08/24 08:42 Temperature 98.1 F 98.7 F 98 F Pulse Rate [Blood Pressure Cuff] 102 H 93 90 Respiratory Rate 18 18 16 Blood Pressure [Ri ght Arm] 127/83 119/81 128/89 Pulse Oximetry 99 96 Oxygen Delivery Me thod Room Air Room Air Room Air OB - DS: Summary Hospital Course Hospital Course: The patient is a 28 year old G 1 P 1001 at 41 weeks gestation that was admitted to the Center on 01/05/24 for IOL due to post term dates. Patient diagnosed with preeclampsia with severe features intrapartum. Treated with IV antihypertensive medications and received magnesium sulfate infusion during labor and for 24 hours . She had an uncomplicated delivery. She delivered a viable male infant. She is breast feeding. the patient has done well. 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 Labs have been remarkable for slight increase in trend transaminitis, but these have not doubled, also no other lab work abnormalities this morning that would be of concern (normal kidney function and normal platelets). Peripartum Data Infant delivery method: Primary C/S; Labored Procedures: Procedures Operation Date: 01/06/24 00:00 Actual Procedure Side Surgeon p Low Transverse Section Sravani Schreiber MD complications: other (Severely elevated blood pressures) Gender: Male Discharge Plan: Home Status at Discharge Functional status at discharge: independent ambulation Overall status at discharge: patient is progressing back to baseline Time Spent with Patient Time attestation: Total time spent providing and/or coordinating discharge services: Time spent: Less than 30 minutes Discharge Plan Discharge Disposition: Home, Self-Care Date of Admission: 01/05/24 06:26 Attending Provider on Discharge: Sravani Schreiber Primary Care Provider: Provider,Not a Local Condition: Stable Anticipated Discharge Date/Time: 01/08/24 15:00 Discharge Medications: New nifedipine 30 mg Tablet Extended Release 24hr 60 mg PO BID Qty: 30 0RF acetaminophen 500 mg Tablet 1,000 mg PO Q6H PRN (Reason: Pain) Qty: 30 0RF ibuprofen 600 mg Tablet 600 mg PO Q6H PRN (Reason: Pain) Qty: 30 0RF labetalol 100 mg Tablet 200 mg PO BID Qty: 30 0RF oxycodone 5 mg Tablet 5 - 10 mg PO Q4H PRN (Reason: Pain) Qty: 15 0RF Continued One A Day Women's DHA 28 mg iron- 800 mcg combo pack 1 pkg PO DAILY docusate sodium [Colace] 100 mg capsule 100 mg PO QDAY Qty: 30 1RF omeprazole 20 mg capsule,delayed release(DR/EC) 20 mg PO QDAY Qty: 60 2RF Discontinued aspirin [Adult Low Dose Aspirin] 81 mg tablet,delayed release (DR/EC) 81 mg PO QDAY Discharge Orders: Discharge Order (Routine); Ordered 01/08/24 Ordered By: Sravani Schreiber Patient Education: OB Over the Counter Medication Information, OB /Bottle Feeding Additional Instructions: Measure blood pressures at home twice a day. Notify clinic if there are blood pressures persistently more than 150 systolics, 100s diastolics or if any symptoms such as headaches that do not go away with pain medication, visual changes such as dark spots in vision, pain in the upper abdomen-that moves towards the upper right side. Notify clinic if there are blood pressures persistently less than 90 seconds systolics, 50s diastolics or if there is any associated symptoms such as lightheadedness, dizziness, shortness of breath, heart palpitations. Follow-up in clinic in 3-5 days after discharge for blood pressure check, review of antihypertensive medication regimen. Follow-up in clinic in 2 weeks for incision check and follow-up. Follow-up in 6 weeks in clinic for regular visit. Activity Level: Activity as Tolerated Activity Detail: Nothing vaginally for 6 weeks Discharge Diet: Regular Follow Up Appointments: Provider,Not a Local [Primary Care Provider] - Forms: [employer] Info Instructions
[2024-01-08 13:48] VITALS: BP 126/77; PULSE 107; RESP 16; TEMP 36.7; O2SAT 97
== END 2024-01-08 15:55 | disposition home or self-care (01) | DRG 787 ==
PROVIDERS: Obstetrics & Gynecology; Admitting Provider Obstetrics & Gynecology; Visit Provider Obstetrics & Gynecology
PROC: 3E033VJ Introduction of Other Hormone into Peripheral Vein, Percutaneous Approach (ICD-10-PCS; CPT 59514; principal; 2024-01-05 23:45)
DX: O14.14 Severe pre-eclampsia complicating childbirth (principal); D62 Acute posthemorrhagic anemia; Z3A.41 41 weeks gestation of pregnancy; O90.81 Anemia of the puerperium; G89.18 Other acute postprocedural pain; O99.214 Obesity complicating childbirth; K21.9 Gastro-esophageal reflux disease without esophagitis; O13.4 Gestational [pregnancy-induced] hypertension without significant proteinuria, complicating childbirth; O48.0 Post-term pregnancy; O32.8XX0 Maternal care for other malpresentation of fetus, not applicable or unspecified; Z37.0 Single live birth
CPT/HCPCS: 01961; 01967; 36415; 51701; 64488; 76942; 82565; 82570; 83735; 84156; 84450; 84460; 84520; 85025; 85027; 86592; 86850; 86900; 86901; 88307; 99140; A9270; C9290; J0456; J0665; J0690; J1100; J1200; J1650; J1885; J2274; J2371; J2405; J2590; J2795; J3010; J3475; J7050; J7120

== ENCOUNTER 2024-01-08 22:08 | Inpatient (IN) | payer MEDICAID, SELFPAY ==
[2024-01-08 22:32] VITALS: BP 155/101; PULSE 88; RESP 20; TEMP 36.4; O2SAT 98
[2024-01-08 22:41] VITALS: BP 143/103
--- NOTE | 2024-01-08 23:11 | ED_ITS ---
HPI - Headache General Date Seen: 01/08/24 Chief Complaint: Post OB/Post- Complication Stated Complaint: Abdominal and back pain, fever, just gave Time Seen by Provider: 01/08/24 22:33 Source: patient and family Mode of arrival: ambulatory Limitations: no limitations History of Present Illness HPI Narrative: A 28-year-old female who presents here to the emergency room after she was discharged earlier today from OB, she had a , and a history of severe preeclampsia, she was discharged on oral medications but unfortunately has not been able to get those of the pharmacy is closed. She notes that all the stigmata of her preeclampsia back including a frontal headache, seeing lights, feeling of her skin crawling, some nausea associated with this, feeling bloating also. MD elicited complaint: headache Treatments prior to arrival: none Related Data Home Medications Medication Instructions Recorded Confirmed vits 75-iron 28 mg-folic 1 pkg PO DAILY 08/05/23 01/06/24 acid 800 mcg-omega-3 oral combo pack (One A Day Women's DHA) Previous Rx's Medication Instructions Recorded docusate sodium 100 mg capsule 100 mg PO QDAY #30 caps 08/05/23 (Colace) omeprazole 20 mg capsule,delayed 20 mg PO QDAY #60 caps 12/05/23 release acetaminophen 500 mg tablet 1,000 mg (2 x 500 mg) PO Q6H PRN 01/08/24 Pain #30 tabs ibuprofen 600 mg tablet 600 mg PO Q6H PRN Pain #30 tabs 01/08/24 labetalol 100 mg tablet 200 mg (2 x 100 mg) PO BID #30 tabs 01/08/24 nifedipine 30 mg tablet,extended 60 mg (2 x 30 mg) PO BID #30 tabs 01/08/24 release 24 hr oxycodone 5 mg tablet 5 - 10 mg (1 - 2 x 5 mg) PO Q4H 01/08/24 PRN Pain #15 tabs Allergies Allergy/AdvReac Type Severity Reaction Status Date / Time No Known Drug Allergies Allergy Verified 01/02/24 08:12 Review of Systems Status of ROS: Reports: 10 or more systems reviewed and unremarkable except as noted in History and below [facility] Medical History Anxiety ?F41.9 - Anxiety disorder, unspecified (ICD-10) Depression ?F32.A - Depression, unspecified (ICD-10) Surgical History S/P primary low transverse (01/06/24) ?Z98.891 - History of uterine scar from previous surgery (ICD-10) H/O foot surgery ?Z98.890 - Other specified postprocedural states (ICD-10) Family History Maternal Grandmother High blood pressure Paternal Grandmother Diabetes Paternal Grandfather Diabetes Aunt Diabetes Social History Narrative: History of blood transfusion: No. 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 Marital status: Significant other. Cheondoism/cultural needs: no. Chemical or radiation exposure: no. Pre- tobacco use: no. Pre- alcohol use: no. Current tobacco use: no. Current alcohol use: no. Recreational drug use: no. Dietary restrictions: no. Blood transfusion acceptable in an emergency: yes. PSYCHOSOCIAL HISTORY: History of depression or currently depressed: Yes, history. Current or past physical, emotional, or sexual mistreatment: No. Problems that will make it hard to make it to appointments: No. What is your current living situation?: I presently have a place to live Problems where you live: no known problems In the past 12 months, utilities in danger of being shut off: no In past 12 months, lack of transportation kept you from medical appts, meetings, work, or getting things needed for daily living: no In the past 12 mos, have been you worried that your food would run out before you had money to buy more?: never true In the past 12 mos, the food you bought just didn't last and you didn't have money to buy more?: never true Smoking Status: Never smoker How often does anyone, including family, friends and others, physically hurt you : never How often does anyone, including family, friends and others, insult or talk down to you: never How often does anyone, including family, friends and others, threaten you with harm: never How often does anyone, including family, friends and others, scream or curse at you: never Little interest or pleasure in doing things: not at all Feeling down, depressed, or hopeless: not at all Exam Narrative: Exam Narrative: On examination in room 7 she is in no apparent distress speaking to me normally alert and oriented x3 the GCS is 15/15, pupils equal round reactive to light, her fundi appear normal is examiner, but she is very small pupils. There is no nystagmus, no facial edema, her chest is good air entry bilaterally with no wheezing crackles noted heart sounds are normal, abdomen is soft, some tenderness is in her lower abdomen where her was, bowel sounds are nor mal. There is the dressing over her lower abdomen. Her see no CVA tenderness, she has some mild 1+ pitting edema bilaterally, she is hyperreflexic, at 3/4, with no clonus. Const: Vital Signs, click to edit/add: Vital Signs - 24 hr 01/08/24 22:32 01/08/24 22:41 01/08/24 23:17 Temperature 97.5 F L Pulse Rate [Left P ulse Oximeter] 88 Respiratory Rate 20 Blood Pressure 137/94 H Blood Pressure [Ri ght Upper Arm] 155/101 H 143/103 H Pulse Oximetry 98 Oxygen Delivery Me thod Room Air 01/08/24 23:25 Temperature Pulse Rate [Left P ulse Oximeter] Respiratory Rate Blood Pressure 140/97 H Blood Pressure [Ri ght Upper Arm] Pulse Oximetry Oxygen Delivery Me thod Documenting provider has reviewed patient's vital signs: yes Course Course ED Course: I discussed her case with Dr. Regan from OBGYN, she will admit her to the hospital, will give her an extra dose of labetalol, she is already getting the medications for preeclampsia with the magnesium. Informed the patient she is in agreement Vital Signs Vital signs: Initial Vital Signs Temperature 97.5 F L 01/08/24 22:32 Temperature Source Temporal Artery Scan 01/08/24 22:32 Pulse Rate 88 01/08/24 22:32 Respiratory Rate 20 01/08/24 22:32 Blood Pressure 155/101 H 01/08/24 22:32 Blood Pressure Mean 119 H 01/08/24 22:32 Blood Pressure Position Sitting 01/08/24 22:32 Pulse Oximetry 98 01/08/24 22:32 Oxygen Delivery Method Room Air 01/08/24 22:32 Vital Signs Temperature 97.5 F L 01/08/24 22:32 Pulse Rate 88 01/08/24 22:32 Respiratory Rate 20 01/08/24 22:32 Blood Pressure 155/101 H 01/08/24 22:32 Pulse Oximetry 98 01/08/24 22:32 Oxygen Delivery Method Room Air 01/08/24 22:32 Temperature 97.5 F L 01/08/24 22:32 Pulse Rate 88 01/08/24 22:32 Respiratory Rate 20 01/08/24 22:32 Blood Pressure 140/97 H 01/08/24 23:25 Pulse Oximetry 98 01/08/24 22:32 Oxygen Delivery Method Room Air 01/08/24 22:32 Medications Administered Medications: Generic Name Dose Route Start Last Admin Trade Name Freq PRN Reason Stop Dose Admin Magnesium Sulfate 2 gm in 50 mls @ 25 mls/hr 01/08/24 22:44 01/08/24 23:31 Magnesium Iv IVPB 01/09/24 00:43 25 mls/hr ONCE ONE Administration Discontinued Medications Generic Name Dose Route Start Last Admin Trade Name Freq PRN Reason Stop Dose Admin Sodium Chloride 1,000 mls @ 1,000 mls/hr 01/08/24 22:45 01/08/24 23:23 0.9 % Sodium Chloride 1000 Ml IV 01/08/24 23:44 1,000 mls/hr .Q1H EMILY Administration Labetalol HCl 5 mg 01/08/24 22:41 01/08/24 23:22 Labetalol Hcl 5 Mg/Ml Inj IVP 01/08/24 22:42 5 mg ONCE ONE Administration MDM - Headache MDM Narrative Medical decision making narrative: We will give her some medications as her blood pressures up in comparison to what it was in the hospital was 120 on 80s here here is 155 systolic. We will give her some labetalol, and I will give her 2 g of magnesium, we will do some preeclampsia labs, and I will contact OBGYN. Medical Records Attestation: I reviewed the patient's medical records. Lab Data Labs: Lab Results 01/08/24 01/08/24 Range/Units 22:57 22:57 WBC 13.88 H (4.50-11.00) K/uL RBC 3.90 L (4.00-5.20) m/uL Hgb 10.8 L (12.0-16.0) gm/dL Hct 33.6 (33.0-51.0) % MCV 86 (80-100) fL MCH 28 (26-34) pg MCHC 32 (32-36) gm/dL RDW Coeff of [place] 15.1 (11.5-15.5) % Plt Count 370 (140-440) K/uL Neut % (Auto) 75.7 H (42.0-72.0) % Lymph % (Auto) 17.7 L (20-44) % [place] % (Auto) 5.2 (0.0-11.0) % Eos % (Auto) 0.4 (0.0-7.0) % Baso % (Auto) 0.1 (0.0-3.0) % Neut # (Auto) 10.50 H (1.7-7.0) K/uL Lymph # (Auto) 2.50 (0.90-2.90) K/uL [place] # (Auto) 0.70 (0.00-0.90) K/UL Eos # (Auto) 0.10 (0.00-0.50) K/uL Baso # (Auto) 0.00 (0.00-0.30) K/uL Abs Immat Gran (auto) 0.10 (0.00-0.30) K/uL Imm/Tot Granulo (auto) 0.9 % INR 0.82 L (0.91-1.10) APTT 27 (23-33) Seconds Fibrinogen 595 H (200-450) mg/dL Sodium 135 (135-149) mmol/L Potassium 3.9 (3.6-5.1) mmol/L Chloride 104 (96-114) mmol/L Carbon Dioxide 20 (20-32) mmol/L Anion Gap 11 (7-15) mEq/L BUN 14 (5-24) mg/dL Creatinine 0.5 (0.5-1.5) mg/dL Estimated GFR 130 ml/min Glucose 86 (60-115) mg/dL Uric Acid 6.3 (2.2-8.4) mg/dL Calcium 9.7 (8.4-10.6) mg/dL Total Bilirubin 0.3 (0.1-1.5) mg/dL Direct Bilirubin 0.1 (0.0-0.5) mg/dL AST 85 H 85 H (12-35) U/L ALT 68 H (4-35) U/L Alkaline Phosphatase 203 H (40-150) U/L Total Protein 7.5 (6.0-8.3) g/dL Albumin 3.9 (3.3-5.0) g/dL Discharge Plan Discharge Clinical Impression: Pre-eclampsia, Status post Patient Disposition: Admitted As Observation Prescriptions: No Action One A Day Women's DHA 28 mg iron- 800 mcg combo pack 1 pkg PO DAILY docusate sodium [Colace] 100 mg capsule 100 mg PO QDAY Qty: 30 1RF omeprazole 20 mg capsule,delayed release(DR/EC) 20 mg PO QDAY Qty: 60 2RF nifedipine 30 mg Tablet Extended Release 24hr 60 mg PO BID Qty: 30 0RF acetaminophen 500 mg Tablet 1,000 mg PO Q6H PRN (Reason: Pain) Qty: 30 0RF ibuprofen 600 mg Tablet 600 mg PO Q6H PRN (Reason: Pain) Qty: 30 0RF labetalol 100 mg Tablet 200 mg PO BID Qty: 30 0RF oxycodone 5 mg Tablet 5 - 10 mg PO Q4H PRN (Reason: Pain) Qty: 15 0RF Follow Up/Referrals: Provider,Not a Local [Referring] -
[2024-01-08 23:12] LABS: Basophils Percent Auto 0.1 % (0.0-3.0); Eosinophils Percent Auto 0.4 % (0.0-7.0); Hematocrit 33.6 % (33.0-51.0); Hemoglobin* 10.8 gm/dL (12.0-16.0); Immature Granulocytes Pct Auto 0.9 %; Lymphocytes Percent Auto 17.7 % (20-44); Mean Corpuscular HGB Conc 32 gm/dL (32-36); Mean Corpuscular Hemoglobin 28 pg (26-34); Mean Corpuscular Volume 86 fL (80-100); Monocytes Percent Auto 5.2 % (0.0-11.0); Neutrophils Percent Auto 75.7 % (42.0-72.0); Platelet Count* 370 K/uL (140-440); RDW Coefficient of Variation % 15.1 % (11.5-15.5); White Blood Count* 13.88 K/uL (4.50-11.00)
[2024-01-08 23:15] LABS: Slide Review Reflex No
[2024-01-08 23:17] VITALS: BP 137/94
[2024-01-08 23:20] LABS: Albumin* 3.9 g/dL (3.3-5.0); Chloride* 104 mmol/L (96-114); Potassium* 3.9 mmol/L (3.6-5.1); Sodium* 135 mmol/L (135-149)
[2024-01-08 23:22] LABS: Creatinine* 0.5 mg/dL (0.5-1.5); Estimated Glomerular Filt Rate 130 ml/min
[2024-01-08] MEDS: LABETALOL HCL 5 MG/ML inj IVP (23:22)
[2024-01-08 23:23] LABS: Alanine Aminotransferase* 68 U/L (4-35); Alkaline Phosphatase* 203 U/L (40-150); Anion Gap 11 mEq/L (7-15); Aspartate Amino Transferase* 85 U/L (12-35); Bilirubin Direct* 0.1 mg/dL (0.0-0.5); Bilirubin Total* 0.3 mg/dL (0.1-1.5); Blood Urea Nitrogen* 14 mg/dL (5-24); Calcium* 9.7 mg/dL (8.4-10.6); Carbon Dioxide* 20 mmol/L (20-32); Glucose* 86 mg/dL (60-115); Total Protein* 7.5 g/dL (6.0-8.3)
[2024-01-08] MEDS: 0.9 % SODIUM CHLORIDE 1000 ml 1,000 ML IV (23:23)
[2024-01-08 23:24] LABS: Aspartate Amino Transferase* 85 U/L (12-35); Uric Acid* 6.3 mg/dL (2.2-8.4)
[2024-01-08 23:25] VITALS: BP 140/97
[2024-01-08 23:29] LABS: INR 0.82 (0.91-1.10); Prothrombin Time 11.8 Seconds
[2024-01-08 23:30] LABS: Partial Thromboplastin Time* 27 Seconds (23-33)
[2024-01-08] MEDS: MAGNESIUM IV 2 GM/50 ML PIGGYBACK IVPB (23:31)
[2024-01-08 23:35] LABS: Fibrinogen* 595 mg/dL (200-450)
[2024-01-08 23:52] VITALS: BP 135/103
--- NOTE | 2024-01-08 23:53 | ED.NURSE ---
Patient report given to Zabrina ANTHONY on OB. Patient going to be going to room 208
[2024-01-09] VITALS (21 sets, daily range): BP systolic 108–145; BP diastolic 71–95; PULSE 74–97; RESP 16–18; TEMP 36.3–36.8; O2SAT 97–98
[2024-01-09] MEDS: LACTATED RINGERS 1000 ML 1,000 ML 75 ML IV ×2 (00:16→14:38)
[2024-01-09] MEDS: NIFEdipine 30 MG TAB.ER.24 60 MG PO ×3 (00:29→21:01)
[2024-01-09] MEDS: LABETALOL HCL 100 MG TABLET 200 MG PO ×3 (00:33→21:01)
[2024-01-09] MEDS: MAGNESIUM IV 4 GM/100 ML PIGGYBACK IVPB (00:46)
[2024-01-09] MEDS: MAGNESIUM Infusion 40 GM/1,000 ML IV.SOLN IVPB ×2 (01:52→20:36)
--- NOTE | 2024-01-09 03:35 | P.OBO_ITS ---
OB Outpatient HPI History of Present Illness History of Present Illness: 28 year old who is on POD 3 after PLTCS due to arrest of dilation. Patient diagnosed with preeclampsia with severe features intrapartum on 01/05/24, by BP criteria and elevated P/C ratio. Patient received magnesium sulfate intrapartum and for 24 hours after delivery. Was started on PO nifedipine 60mg BID and labetalol 200 mg BID. Blood pressures remained well controlled for more than 48 hours and labs showed a slight up trend on liver enzymes but not concerningly elevated. Patient really desired discharge home yesterday and she was discharged home in the afternoon. Patient was unable to get medications from pharmacy yesterday afternoon. At home, started to experience a headache and visual floaters, came back to ED and was found with elevated blood pressures, repeat labs also showing doubling of liver enzymes. Recommendation given to re admit to repeat magnesium sulfate infusion and observation. Meds Home Medications and Allergies Allergies Allergy/AdvReac Type Severity Reaction Status Date / Time No Known Drug Allergies Allergy Verified 01/02/24 08:12 [facility] Medical History Anxiety ?F41.9 - Anxiety disorder, unspecified (ICD-10) Depression ?F32.A - Depression, unspecified (ICD-10) Surgical History S/P primary low transverse (01/06/24) ?Z98.891 - History of uterine scar from previous surgery (ICD-10) H/O foot surgery ?Z98.890 - Other specified postprocedural states (ICD-10) Family History Maternal Grandmother High blood pressure Paternal Grandmother Diabetes Paternal Grandfather Diabetes Aunt Diabetes Social History Narrative: History of blood transfusion: No. 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 Marital status: Significant other. Congregation/cultural needs: no. Chemical or radiation exposure: no. Pre- tobacco use: no. Pre- alcohol use: no. Current tobacco use: no. Current alcohol use: no. Recreational drug use: no. Dietary restrictions: no. Blood transfusion acceptable in an emergency: yes. PSYCHOSOCIAL HISTORY: History of depression or currently depressed: Yes, history. Current or past physical, emotional, or sexual mistreatment: No. Problems that will make it hard to make it to appointments: No. What is your current living situation?: I presently have a place to live Problems where you live: no known problems In the past 12 months, utilities in danger of being shut off: no In past 12 months, lack of transportation kept you from medical appts, meetings, work, or getting things needed for daily living: no In the past 12 mos, have been you worried that your food would run out before you had money to buy more?: never true In the past 12 mos, the food you bought just didn't last and you didn't have money to buy more?: never true Smoking Status: Never smoker How often does anyone, including family, friends and others, physically hurt you : never How often does anyone, including family, friends and others, insult or talk down to you: never How often does anyone, including family, friends and others, threaten you with harm: never How often does anyone, including family, friends and others, scream or curse at you: never Little interest or pleasure in doing things: not at all Feeling down, depressed, or hopeless: not at all History History 1 Elective abortions Para 1 Spontaneous abortions Hx # Term Pregnancies Ectopic pregnancies Hx # Pregnancies Multiple births Number of Living Children 0 OB - H&P: Exam Physical Exam Vital signs: Temp Pulse Resp BP Pulse Ox O2 Del Method 97.4 F L 82 18 115/77 98 Room Air 01/09/24 00:04 01/09/24 01:59 01/09/24 01:59 01/09/24 03:05 01/08/24 22:32 01/09/24 01:06 Labs Labs Laboratory Tests 01/08/24 01/08/24 Range/Units 22:57 22:57 WBC 13.88 H (4.50-11.00) K/uL RBC 3.90 L (4.00-5.20) m/uL Hgb 10.8 L (12.0-16.0) gm/dL Hct 33.6 (33.0-51.0) % MCV 86 (80-100) fL MCH 28 (26-34) pg MCHC 32 (32-36) gm/dL RDW Coeff of Clyde 15.1 (11.5-15.5) % Plt Count 370 (140-440) K/uL Neut % (Auto) 75.7 H (42.0-72.0) % Lymph % (Auto) 17.7 L (20-44) % [place] % (Auto) 5.2 (0.0-11.0) % Eos % (Auto) 0.4 (0.0-7.0) % Baso % (Auto) 0.1 (0.0-3.0) % Neut # (Auto) 10.50 H (1.7-7.0) K/uL Lymph # (Auto) 2.50 (0.90-2.90) K/uL [place] # (Auto) 0.70 (0.00-0.90) K/UL Eos # (Auto) 0.10 (0.00-0.50) K/uL Baso # (Auto) 0.00 (0.00-0.30) K/uL Abs Immat Gran (auto) 0.10 (0.00-0.30) K/uL Imm/Tot Granulo (auto) 0.9 % INR 0.82 L (0.91-1.10) APTT 27 (23-33) Seconds Fibrinogen 595 H (200-450) mg/dL Sodium 135 (135-149) mmol/L Potassium 3.9 (3.6-5.1) mmol/L Chloride 104 (96-114) mmol/L Carbon Dioxide 20 (20-32) mmol/L Anion Gap 11 (7-15) mEq/L BUN 14 (5-24) mg/dL Creatinine 0.5 (0.5-1.5) mg/dL Estimated GFR 130 ml/min Glucose 86 (60-115) mg/dL Uric Acid 6.3 (2.2-8.4) mg/dL Calcium 9.7 (8.4-10.6) mg/dL Total Bilirubin 0.3 (0.1-1.5) mg/dL Direct Bilirubin 0.1 (0.0-0.5) mg/dL AST 85 H 85 H (12-35) U/L ALT 68 H (4-35) U/L Alkaline Phosphatase 203 H (40-150) U/L Total Protein 7.5 (6.0-8.3) g/dL Albumin 3.9 (3.3-5.0) g/dL Assessment and Plan Assessment and plan (1) Severe preeclampsia: Problem comment: By BP criteria Status: Acute Plan Magnesium sulfate infusion for seizure prophylaxis, 12- 24 hours depending on blood pressures and lab work findings. Re start nifedipine 60 mg BID and labetalol 200 mg BID. Labs every 6 hours. Close monitoring of vital signs, maternal status.
[2024-01-09 06:12] LABS: Hematocrit 30.5 % (33.0-51.0); Hemoglobin* 9.8 gm/dL (12.0-16.0); Mean Corpuscular HGB Conc 32 gm/dL (32-36); Mean Corpuscular Hemoglobin 28 pg (26-34); Mean Corpuscular Volume 86 fL (80-100); Platelet Count* 348 K/uL (140-440); Red Blood Count 3.53 m/uL (4.00-5.20); White Blood Count* 10.02 K/uL (4.50-11.00)
[2024-01-09 06:21] LABS: Alanine Aminotransferase* 65 U/L (4-35); Aspartate Amino Transferase* 79 U/L (12-35); Blood Urea Nitrogen* 8 mg/dL (5-24); Creatinine* 0.4 mg/dL (0.5-1.5); Estimated Glomerular Filt Rate 137 ml/min; Slide Review Reflex No
[2024-01-09 06:34] LABS: Magnesium* 5.3 mg/dL (1.5-2.6)
--- NOTE | 2024-01-09 07:19 | PM.OBPNVD1 ---
OB - PN:Subj Subjective Time Seen by Provider: 07:19 Date Seen: 01/09/24 Narrative: Overnight patient had headache that has improved since magnesium sulfate administration. She is currently very fatigued. Her pain is well controlled on oral pain medications. She is tolerating a regular diet. She has passed flatus. She is ambulating without difficulty. Lochia is scant. She is urinating without gomez. Patient denies chest pain, SOB, n/v, RUQ pain, vision changes, or dizziness. OB - PN: Obj Exam Physical Exam: Vital signs: Temp Pulse Resp BP Pulse Ox O2 Del Method 97.7 F 93 18 119/80 97 Room Air 01/09/24 04:02 01/09/24 06:00 01/09/24 04:02 01/09/24 06:00 01/09/24 04:02 01/09/24 04:02 Narrative: Physical exam: General: No acute distress Psych: Alert and oriented x4, full affect HEENT: Normocephalic, atraumatic Neck: No cervical adenopathy, no thyromegaly Heart: Regular rate and rhythm, no murmur rub or gallop Lungs: Clear to auscultation bilaterally Abdomen: Normoactive bowel sounds, soft, appropriately tender around incision site, no rebound, or guarding Incision: Appropriately tender to palpation. Clean, dry, and intact. No erythema, induration, or abnormal discharge/breakdown Skin: No lesions or rashes Breasts: Deferred Lower extremities: No edema or erythema Pelvic exam: No blood on pad OB - PN: Obj Data Labs Labs: Laboratory Results - last 24 hr 01/08/24 01/08/24 01/09/24 22:57 22:57 05:54 WBC 13.88 H 10.02 RBC 3.90 L 3.53 L Hgb 10.8 L 9.8 L Hct 33.6 30.5 L MCV 86 86 MCH 28 28 MCHC 32 32 RDW Coeff of Clyde 15.1 Plt Count 370 348 Neut % (Auto) 75.7 H Lymph % (Auto) 17.7 L [place] % (Auto) 5.2 Eos % (Auto) 0.4 Baso % (Auto) 0.1 Neut # (Auto) 10.50 H Lymph # (Auto) 2.50 [place] # (Auto) 0.70 Eos # (Auto) 0.10 Baso # (Auto) 0.00 Abs Immat Gran (auto) 0.10 Imm/Tot Granulo (auto) 0.9 INR 0.82 L APTT 27 Fibrinogen 595 H Sodium 135 Potassium 3.9 Chloride 104 Carbon Dioxide 20 Anion Gap 11 BUN 14 8 Creatinine 0.5 0.4 L Estimated GFR 130 137 Glucose 86 Uric Acid 6.3 Calcium 9.7 Magnesium 5.3 H* Total Bilirubin 0.3 Direct Bilirubin 0.1 AST 85 H 85 H 79 H ALT 68 H 65 H Alkaline Phosphatase 203 H Total Protein 7.5 Albumin 3.9 OB - PN: A/P Delivery Assessment and Plan (1) Severe preeclampsia: Problem details: By BP criteria Status: Acute (2) S/P primary low transverse : Status: Acute Plan Postoperative/post delivery Review: - Admitted for: Schedule induction of labor - Surgical procedure: Primary delivery due to arrest of dilation - Skin incision: Pfannenstiel - Closure: Sutures - Quantitative blood loss: 765 mL - Intraoperative Complications: None Acute blood loss anemia - Preop/pre delivery H/H: 11.2/33.9 - Postop/post delivery H/H: 9.4/28.4 - Hgb today: 10.5 - Plan: PO iron every other day Pre-Eclampsia with severe features - Patient diagnosed with preeclampsia with severe features intrapartum on 01/05/24, by BP criteria and elevated P/C ratio. Patient received magnesium sulfate intrapartum and for 24 hours after delivery. Was started on PO nifedipine 60mg BID and labetalol 200 mg BID. Blood pressures remained well controlled for more than 48 hours and labs showed a slight up trend on liver enzymes but not concerningly elevated. Patient really desired discharge home yesterday and she was discharged home in the afternoon. Patient was unable to get medications from pharmacy yesterday afternoon. At home, started to experience a headache and visual floaters, came back to ED and was found with elevated blood pressures, repeat labs also showing doubling of liver enzymes. Recommendation given to re admit to repeat magnesium sulfate infusion and observation. - BP over the last 6 hours: 110-120s/70-80s - Symptoms: Headaches - Magnesium: on Magnesium for seizure ppx, will d/c at 0152 on 01/10/24 - Antihypertensives: Nifedipine ER 60 mg BID, labetalol 200 mg BID - Pre-eclampsia labs on 01/09: Hgb 10.5 Plt 384 Cr 0.5 ALT 67 AST 74 - UOP: 0.65 cc/kg/hr Postoperative care: - Diet: Advance as tolerated - Fluid: Encourage oral intake - Activity: Encourage ambulation and incentive spirometry - Pain: Acetaminophen, Ibuprofen, and oxycodone - DVT prophylaxis: SCDs and TEDs when not ambulating. Dispo: Patient is POD#3. Need the following milestones: Still on IV magnesium sulfate. BP needs to be stable at least 24 hr s/p magnesium sulfate. Anticipate discharge POD#5.
[2024-01-09 12:22] LABS: Hematocrit 32.7 % (33.0-51.0); Hemoglobin* 10.5 gm/dL (12.0-16.0); Mean Corpuscular HGB Conc 32 gm/dL (32-36); Mean Corpuscular Hemoglobin 28 pg (26-34); Mean Corpuscular Volume 86 fL (80-100); Platelet Count* 384 K/uL (140-440); White Blood Count* 10.44 K/uL (4.50-11.00)
[2024-01-09 12:26] LABS: Slide Review Reflex No
[2024-01-09 12:37] LABS: Alanine Aminotransferase* 67 U/L (4-35); Aspartate Amino Transferase* 74 U/L (12-35); Blood Urea Nitrogen* 9 mg/dL (5-24); Creatinine* 0.5 mg/dL (0.5-1.5); Estimated Glomerular Filt Rate 130 ml/min
[2024-01-09] MEDS: ACETAMINOPHEN 500 MG TABLET 1000 MG PO (13:44)
[2024-01-09 18:26] LABS: Mean Corpuscular HGB Conc 32 gm/dL (32-36); Mean Corpuscular Hemoglobin 28 pg (26-34); Mean Corpuscular Volume 86 fL (80-100); Platelet Count* 424 K/uL (140-440); Red Blood Count 3.94 m/uL (4.00-5.20)
[2024-01-09 18:28] LABS: Alanine Aminotransferase* 79 U/L (4-35); Aspartate Amino Transferase* 78 U/L (12-35); Blood Urea Nitrogen* 9 mg/dL (5-24); Creatinine* 0.5 mg/dL (0.5-1.5); Estimated Glomerular Filt Rate 130 ml/min; Slide Review Reflex No
[2024-01-09 18:46] LABS: Magnesium* 6.8 mg/dL (1.5-2.6)
[2024-01-10] VITALS (9 sets, daily range): BP systolic 113–130; BP diastolic 70–87; PULSE 68–102; RESP 16–18; TEMP 36.7–37.2; O2SAT 96–100
[2024-01-10 00:48] LABS: Hematocrit 31.9 % (33.0-51.0); Hemoglobin* 10.3 gm/dL (12.0-16.0); Mean Corpuscular HGB Conc 32 gm/dL (32-36); Mean Corpuscular Hemoglobin 28 pg (26-34); Mean Corpuscular Volume 86 fL (80-100); Platelet Count* 423 K/uL (140-440); White Blood Count* 11.33 K/uL (4.50-11.00)
[2024-01-10 00:50] LABS: Slide Review Reflex No
[2024-01-10 01:05] LABS: Creatinine* 0.6 mg/dL (0.5-1.5)
[2024-01-10 01:06] LABS: Alanine Aminotransferase* 65 U/L (4-35); Aspartate Amino Transferase* 63 U/L (12-35); Blood Urea Nitrogen* 11 mg/dL (5-24); Estimated Glomerular Filt Rate 125 ml/min
[2024-01-10] MEDS: FERROUS SULFATE 325 MG TABLET PO (08:19)
[2024-01-10] MEDS: LABETALOL HCL 100 MG TABLET 200 MG PO ×2 (08:19→20:56)
[2024-01-10] MEDS: NIFEdipine 30 MG TAB.ER.24 60 MG PO ×2 (08:19→20:55)
--- NOTE | 2024-01-10 19:54 | PM.OBPNVD1 ---
OB - PN:Subj Subjective Date Seen: 01/10/24 Interval history: Tiffany is a 28 yo woman who is POD #4 s/p primary and hospital day #2 after readmission for preeclampsia with severe features. She was on magnesium sulfate until just after midnight. Since this was discontinued, she is feeling much better. She has been ambulating. She has no LOPEZ. Swelling has decreased dramatically. Her breast milk production has increased. She is doing a combination of and bottle feeding expressed breast milk. She has no heavy bleeding. OB - PN: Obj Exam Physical Exam: Vital signs: Temp Pulse Resp BP Pulse Ox O2 Del Method 98.4 F 102 H 16 113/70 100 Room Air 01/10/24 16:08 01/10/24 16:08 01/10/24 16:08 01/10/24 16:08 01/10/24 16:08 01/10/24 16:08 4900 cc out over 24 hours yesterday Narrative: General: Pleasant, no acute distress Heart: Regular rate and rhythm, no murmur or gallop Lungs: Clear to auscultation bilaterally Abdomen: Soft, nontender, fundus well below umbilicus, no RUQ pain, incision clean, dry and intact Lower extremities: No edema or erythema OB - PN: Obj Data Labs Labs: Laboratory Results - last 24 hr 01/10/24 00:40 WBC 11.33 H RBC 3.70 L Hgb 10.3 L Hct 31.9 L MCV 86 MCH 28 MCHC 32 Plt Count 423 BUN 11 Creatinine 0.6 Estimated GFR 125 Magnesium 7.0 H* AST 63 H ALT 65 H OB - PN: A/P Delivery Assessment and Plan (1) Severe preeclampsia: Problem details: By BP criteria Status: Acute Assessment and Plan: Now with stable BP after discontinuation of magnesium. Will maintain inpatient status until tomorrow AM and continue current antihypertensive regimen of nifedipine and labetalol. Plan for discharge tomorrow AM if pressures continue to be well-managed. (2) S/P primary low transverse : Status: Acute Assessment and Plan: Appropriate post-op course
[2024-01-11 03:15] VITALS: BP 130/85; PULSE 74; RESP 16; TEMP 36.6; O2SAT 98
--- NOTE | 2024-01-11 07:55 | P.DS_ITS ---
DS: Providers Provider Date Seen: 01/11/24 Date of admission: 01/09/24 07:00 Primary care physician: Taya Schneider MD Admitting Clinician: Sravani Schreiber MD Attending Physician on discharge: Sravani Schreiber MD DS: Diagnosis Discharge Diagnosis (1) Status post : Status: Acute (2) Severe preeclampsia: Status: Acute Problem details: By BP criteria (3) S/P primary low transverse : Status: Acute Exam Narrative: Exam Narrative: VITAL SIGNS: As noted above. GENERAL APPEARANCE: Alert, cooperative female in no acute distress. MOOD & AFFECT: Normal. HEART: Regular rate and rhythm without murmurs. LUNGS: Lungs are clear to auscultation bilaterally. No crackles, wheezes, or rhonchi. ABDOMEN: Soft, non-distended and nontender. Incision healing well w/o surrounding erythema, induration or abnormal discharge. : Minimal spotting. EXTREMITIES: Nonedematous. Well perfused. Nontender. NEURO: Intact. Const: Vital Signs, click to edit/add: Vital Signs - 24 hr 01/10/24 07:56 01/10/24 11:59 01/10/24 16:08 Temperature 98.9 F 98.6 F 98.4 F Pulse Rate [Blood Pressure Cuff] 91 101 H 102 H Respiratory Rate 16 16 16 Blood Pressure [Ri ght Arm] 123/78 125/77 113/70 Pulse Oximetry 98 97 100 Oxygen Delivery Me thod Room Air Room Air Room Air 01/10/24 20:01 01/10/24 20:58 01/10/24 23:18 Temperature 98.3 F 98.0 F Pulse Rate [Blood Pressure Cuff] 68 72 Respiratory Rate 16 18 Blood Pressure [Ri ght Arm] 128/85 122/78 130/87 Pulse Oximetry 99 98 Oxygen Delivery Me thod Room Air Room Air 01/11/24 03:15 Temperature 97.8 F Pulse Rate [Blood Pressure Cuff] 74 Respiratory Rate 16 Blood Pressure [Ri ght Arm] 130/85 Pulse Oximetry 98 Oxygen Delivery Me thod Room Air OB - DS: Summary Hospital Course Hospital Course: The patient is a 28 year old G 1 P 1001 on POD #5 that was re admitted to the Center on 01/09/24 due to worsening maternal condition in the setting of preeclampsia with severe features. She was discharged home on POD #3 and was unable to get BP medications and had to return that same night to ED. Found with severely elevated blood pressures and worsening transaminitis. Patient then received magnesium sulfate infusion for another 24 hours and was restarted in antihypertensive medications. Transaminitis on decreasing trend. No [employer] irritability symptoms and blood pressures have remained well under control. Peripartum Data delivery method: Primary C/S; Labored Gender: Male Discharge Plan: Home Status at Discharge Functional status at discharge: independent ambulation Overall status at discharge: patient is progressing back to baseline Time Spent with Patient Time attestation: Total time spent providing and/or coordinating discharge services: Discharge Plan Discharge Disposition: Home, Self-Care Date of Admission: 01/09/24 07:00 Attending Provider on Discharge: Sravani Schreiber Consulting Providers: Charmaine Mccarthy Primary Care Provider: Taya Schneider Condition: Stable Anticipated Discharge Date/Time: 01/11/24 08:01 Discharge Medications: Continued docusate sodium [Colace] 100 mg capsule 100 mg PO QDAY Qty: 30 1RF acetaminophen 500 mg Tablet 1,000 mg PO Q6H PRN (Reason: Pain) Qty: 30 0RF ibuprofen 600 mg Tablet 600 mg PO Q6H PRN (Reason: Pain) Qty: 30 0RF oxycodone 5 mg Tablet 5 - 10 mg PO Q4H PRN (Reason: Pain) Qty: 15 0RF No Action labetalol 100 mg tablet 200 mg PO BID Qty: 30 0RF nifedipine 30 mg tablet extended release 24hr 60 mg PO BID Qty: 30 0RF Discharge Orders: Discharge Order (Routine); Ordered 01/11/24 Ordered By: Sravani Schreiber Patient Education: OB /Breast Feeding Additional Instructions: Measure blood pressures at home twice a day. Notify clinic if there are blood pressures persistently more than 150 systolics, 100s diastolics or if any symptoms such as headaches that do not go away with pain medication, visual changes such as dark spots in vision, pain in the upper abdomen-that moves towards the upper right side. Notify clinic if there are blood pressures persistently less than 90 seconds systolics, 50s diastolics or if there is any associated symptoms such as lightheadedness, dizziness, shortness of breath, heart palpitations. Follow-up in clinic in 3-5 days after discharge for blood pressure check, review of antihypertensive medication regimen. Follow-up in clinic in 2 weeks for incision check and follow-up. Follow-up in 6 weeks in clinic for regular visit. Activity Level: Activity as Tolerated and No Weight Bearing Activity Detail: Nothing vaginally for 6 weeks Discharge Diet: Regular Follow Up Appointments: Taya Schneider MD [Primary Care Provider] - Provider,Not a Local [Referring] - Forms: [employer] Info Instructions
[2024-01-11 09:03] VITALS: BP 127/88; PULSE 103; RESP 16; TEMP 36.4; O2SAT 98
[2024-01-11] MEDS: FERROUS SULFATE 325 MG TABLET PO (09:05)
[2024-01-11] MEDS: NIFEdipine 30 MG TAB.ER.24 60 MG PO (09:06)
[2024-01-11] MEDS: LABETALOL HCL 100 MG TABLET 200 MG PO (09:06)
== END 2024-01-11 10:05 | disposition home or self-care (01) | DRG 776 ==
LOC: ED 23:54 → OB 23:59
PROVIDERS: Admitting Provider Obstetrics & Gynecology; Emergency Provider Family Medicine; PCP Obstetrics & Gynecology; Visit Provider Obstetrics & Gynecology
DX: O14.15 Severe pre-eclampsia, complicating the puerperium (principal); D62 Acute posthemorrhagic anemia; O90.81 Anemia of the puerperium
CPT/HCPCS: 36415; 80048; 80076; 82565; 82570; 83735; 84156; 84450; 84460; 84520; 84550; 85025; 85027; 85384; 85610; 85730; 93005; 99284; A9270; J3475; J7030; J7120

== ENCOUNTER 2024-05-10 00:44 | Emergency (ER) | payer MEDICAID, SELFPAY ==
[2024-05-10 00:59] VITALS: BP 143/89; PULSE 89; RESP 18; TEMP 36.7; O2SAT 99; BMI 31.1
--- NOTE | 2024-05-10 01:27 | CRLHL7_ITS ---
For Patients: As a result of the Century Cures Act, medical imaging exams and procedure reports are released immediately into your electronic medical record. You may view this report before your referring provider. If you have questions, please contact your health care provider. INDICATION: Chest pain. TECHNIQUE: Chest 2 views. COMPARISON: None. FINDINGS: Cardiovascular and mediastinum: Heart size and vasculature are normal in caliber and appearance. Lungs and pleural spaces: Lungs are clear. No sign of infiltrate or mass. No sign of pleural effusion. No pneumothorax. Bones and soft tissues: Unremarkable for age. IMPRESSION: No evidence of an acute pulmonary process. Dictated by Scar Sheikh MD @ 05/10/2024 1:57:04 AM (Electronically Signed)
--- NOTE | 2024-05-10 01:28 | ED.GENADULT ---
HPI - General Adult General Chief complaint: Chest Pain Stated complaint: chest pain radiates to back Time Seen by Provider: 05/10/24 01:14 Source: patient Mode of arrival: ambulatory History of Present Illness HPI narrative: 28-year-old female presents to the emergency department for evaluation of bilateral upper anterior chest pain that radiates to the back for the past 3 days. She reports a history of 6-8 months of upper back pain, mostly positional, would improve with posture changes. Says that the pain feels similar but is now radiating into the chest. She reports that she is feeling short of breath with it but on more specific questioning, she feels like her breath is catching when she is having the pain but she is not truly short of breath. She has no exertional symptoms, no difficulty ambulating or exerting herself. No productive cough or fever. No nausea vomiting or abdominal symptoms. Has not tried any interventions to help with her symptoms. No prior history of chest or throat surgeries. Reports that she is 4 months and had preeclampsia. She is not on any chronic long-term medications. No history of DVT or PE. Past medical history notable for the preeclampsia only, denies any long-term health problems. No prescription medications or allergies. ROS notable for the generalized in chest symptoms as above, otherwise denies times 12 systems. Related Data Home Medications ?Medication ?Instructions ?Recorded ?Confirmed No Known Home Medications 05/10/24 05/10/24 Allergies Allergy/AdvReac Type Severity Reaction Status Date / Time No Known Drug Allergies Allergy Verified 05/10/24 01:01 [facility] Medical History Anxiety ?F41.9 - Anxiety disorder, unspecified (ICD-10) Depression ?F32.A - Depression, unspecified (ICD-10) Surgical History S/P primary low transverse (01/06/24) ?Z98.891 - History of uterine scar from previous surgery (ICD-10) H/O foot surgery ?Z98.890 - Other specified postprocedural states (ICD-10) Family History Maternal Grandmother High blood pressure Paternal Grandmother Diabetes Paternal Grandfather Diabetes Aunt Diabetes Social History Narrative: History of blood transfusion: No. 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 Marital status: Significant other. Worship/cultural needs: no. Chemical or radiation exposure: no. Pre- tobacco use: no. Pre- alcohol use: no. Current tobacco use: no. Current alcohol use: no. Recreational drug use: no. Dietary restrictions: no. Blood transfusion acceptable in an emergency: yes. PSYCHOSOCIAL HISTORY: History of depression or currently depressed: Yes, history. Current or past physical, emotional, or sexual mistreatment: No. Problems that will make it hard to make it to appointments: No. What is your current living situation?: I presently have a place to live Problems where you live: no known problems In the past 12 months, utilities in danger of being shut off: no In past 12 months, lack of transportation kept you from medical appts, meetings, work, or getting things needed for daily living: no In the past 12 mos, have been you worried that your food would run out before you had money to buy more?: never true In the past 12 mos, the food you bought just didn't last and you didn't have money to buy more?: never true Smoking Status: Never smoker How often does anyone, including family, friends and others, physically hurt you: never How often does anyone, including family, friends and others, insult or talk down to you: never How often does anyone, including family, friends and others, threaten you with harm: never How often does anyone, including family, friends and others, scream or curse at you: never Little interest or pleasure in doing things: not at all Feeling down, depressed, or hopeless: not at all Exam Const: Vital Signs, click to edit/add: Vital Signs - 24 hr 05/10/24 00:59 Temperature 98.1 F Pulse Rate [Right Pulse Oximeter] 89 Respiratory Rate 18 Blood Pressure [Ri ght Upper Arm] 143/89 H Pulse Oximetry 99 Oxygen Delivery Me thod Room Air Documenting provider has reviewed patient's vital signs: yes Common normals: no apparent distress General appearance: comfortable and well kempt HENMT: Common normals: normocephalic and oropharynx normal Head and scalp: normocephalic Mouth: oral and palatal mucosa normal Throat: posterior oropharynx normal Eye: Common normals: conjunctivae normal General eye: normal appearance of both eyes Conjunctiva: conjunctiva(e) normal Neck & C-Spine: Common normals: full ROM Other: Chronic shoulder rounding and poor posture. No point cervical tenderness. Anterior neck fullness but no obvious discrete mass. Resp: Common normals: normal respiratory effort, no use of accessory muscles and clear to auscultation bilaterally Effort & inspection: able to speak in complete sentences Auscultation: clear to auscultation bilaterally Cardio: Common normals: regular rate, regular rhythm, S1 normal heart sound, S2 normal heart sound and no murmurs Rate: regular rate Rhythm: regular rhythm Heart sounds: S1 normal and S2 normal Extremity: Common normals: normal to inspection and normal capillary refill Psych: Appearance: well kempt Attitude: engaged Activity/motor behavior: appropriate eye contact Insight: insight good Judgement: judgment good Skin: Common normals: no rashes or lesions noted General skin exam: no rashes or lesions noted Course Course ED Course: Three days of chest pain in low risk female with normal vital signs, no hypoxia or tachycardia. She is and does have risk factors of that as well as obesity for blood clot. Recommend EKG, basic labs including D-dimer, chest x-ray. Suspect musculoskeletal etiology. Less risk for blood clot, GERD, arrhythmia or cardiac process. Await findings. Reevaluation(s) Time of Reevaluation #1: 02:45 Reevaluation #1: Patient continuing to feel well, mild symptoms. Vitals have been normal. Normal blood work, D-dimer, EKG, chemistries, troponin, CBC reviewed with patient. Suspect musculoskeletal etiology. Encouraged Tylenol and ibuprofen. Toradol will be given here in the ED. encouraged patient to consider physical therapy consult and if she still remains symptomatic, see her primary care provider for testing of her thyroid and other etiologies. Reviewed that in the emergency department, we will only look for emergent causes of her symptoms and is not a comprehensive workup. She verbalizes understanding and agreement. Alarm symptoms reviewed and written down for her to follow up sooner if needed. Vital Signs Vital signs: Initial Vital Signs Temperature 98.1 F 06/20/24 00:59 Temperature Source Temporal Artery Scan 05/10/24 00:59 Pulse Rate 89 05/10/24 00:59 Respiratory Rate 18 05/10/24 00:59 Blood Pressure 143/89 H 05/10/24 00:59 Blood Pressure Mean 107 H 05/10/24 00:59 Blood Pressure Position Sitting 05/10/24 00:59 Pulse Oximetry 99 05/10/24 00:59 Oxygen Delivery Method Room Air 05/10/24 00:59 Vital Signs Temperature 98.1 F 05/10/24 00:59 Pulse Rate 89 05/10/24 00:59 Respiratory Rate 18 05/10/24 00:59 Blood Pressure 143/89 H 05/10/24 00:59 Pulse Oximetry 99 05/10/24 00:59 Oxygen Delivery Method Room Air 05/10/24 00:59 Temperature 98.1 F 05/10/24 00:59 Pulse Rate 89 05/10/24 00:59 Respiratory Rate 18 05/10/24 00:59 Blood Pressure 143/89 H 05/10/24 00:59 Pulse Oximetry 99 05/10/24 00:59 Oxygen Delivery Method Room Air 05/10/24 00:59 Medical Decision Making Lab Data Lab results reviewed: Yes I reviewed the patient's lab results Lab results narrative: Labs reassuring. Labs: Lab Results 05/10/24 Range/Units 01:45 WBC 11.27 H (4.50-11.00) K/uL RBC 4.58 (4.00-5.20) m/uL Hgb 11.9 L (12.0-16.0) gm/dL Hct 37.3 (33.0-51.0) % MCV 81 (80-100) fL MCH 26 (26-34) pg MCHC 32 (32-36) gm/dL RDW Coeff of Clyde 14.6 (11.5-15.5) % Plt Count 473 H (140-440) K/uL Neut % (Auto) 83.2 H (42.0-72.0) % Lymph % (Auto) 11.5 L (20-44) % [place] % (Auto) 4.8 (0.0-11.0) % Eos % (Auto) 0.3 (0.0-7.0) % Baso % (Auto) 0.1 (0.0-3.0) % Neut # (Auto) 9.40 H (1.7-7.0) K/uL Lymph # (Auto) 1.30 (0.90-2.90) K/uL [place] # (Auto) 0.50 (0.00-0.90) K/UL Eos # (Auto) 0.00 (0.00-0.50) K/uL Baso # (Auto) 0.00 (0.00-0.30) K/uL Abs Immat Gran (auto) 0.00 (0.00-0.30) K/uL Imm/Tot Granulo (auto) 0.1 % D-Dimer Quant (PE/DVT) 0.18 (0.00-0.50) ug/ml Sodium 140 (135-149) mmol/L Potassium 3.8 (3.6-5.1) mmol/L Chloride 105 (96-114) mmol/L Carbon Dioxide 24 (20-32) mmol/L Anion Gap 11 (7-15) mEq/L BUN 14 (5-24) mg/dL Creatinine 0.5 (0.5-1.5) mg/dL Estimated Creat Clear 131.30 Estimated GFR 130 ml/min Glucose 124 H (60-115) mg/dL Calcium 9.5 (8.4-10.6) mg/dL POC Troponin I 0.00 L (0.01-0.04) ng/ml Imaging Data Chest x-ray: Attestation: I have reviewed the pertinent imaging results. My impression: Normal chest x-ray, specifically no mediastinal widening Radiologist's impression: IMPRESSION: No evidence of an acute pulmonary process. ECG Data Attestation: I personally reviewed and interpreted this ECG as follows: Prior ECG tracings: not available for review Interpretation: Normal sinus rhythm, rate of 86. No significant ST or T-wave abnormalities. No intervals and axis. Normal EKG. Discharge Plan Discharge Clinical Impression: Non-cardiac chest pain Patient Disposition: Home w/ Parent or Adult Condition: Stable Instructions: Noncardiac Chest Pain (ED) Additional Instructions: As we discussed, there are no signs of blood clot in your lungs, heart attack, aortic dissection, asthma attack, pneumonia or other emergent threat to your health causing your chest pain today. My guess is this is related to a musculoskeletal problem related to poor posture and chronic rounding of your shoulders. This is not dangerous. It is okay to use Tylenol 1000 mg every 6 hours and or ibuprofen 600 mg every 6 hours for mild discomfort. You should come to the emergency department if you have severe shortness of breath, passing out, rapid heart rate over 140 at rest or any other severe symptoms. I would encourage you to consider a physical therapy consult. You should also consider following up with her primary care provider and request thyroid testing as thyroiditis is certainly a consideration as well. You have no restrictions on your activities at this time. Activity Level: No Restrictions Discharge Diet: Regular Prescriptions: No Action No Known Home Medications Follow Up/Referrals: Taya Schneider MD [Primary Care Provider] - Stand Alone Forms: [employer]USTRE Info Instructions
[2024-05-10 01:54] LABS: Basophils Percent Auto 0.1 % (0.0-3.0); Eosinophils Percent Auto 0.3 % (0.0-7.0); Hematocrit 37.3 % (33.0-51.0); Hemoglobin* 11.9 gm/dL (12.0-16.0); Immature Granulocytes Pct Auto 0.1 %; Lymphocytes Percent Auto 11.5 % (20-44); Mean Corpuscular HGB Conc 32 gm/dL (32-36); Mean Corpuscular Hemoglobin 26 pg (26-34); Mean Corpuscular Volume 81 fL (80-100); Monocytes Percent Auto 4.8 % (0.0-11.0); Neutrophils Percent Auto 83.2 % (42.0-72.0); Platelet Count* 473 K/uL (140-440); RDW Coefficient of Variation % 14.6 % (11.5-15.5); Red Blood Count 4.58 m/uL (4.00-5.20); White Blood Count* 11.27 K/uL (4.50-11.00)
[2024-05-10 02:10] LABS: Slide Review Reflex No
[2024-05-10 02:12] LABS: Chloride* 105 mmol/L (96-114); Potassium* 3.8 mmol/L (3.6-5.1); Sodium* 140 mmol/L (135-149)
[2024-05-10 02:15] LABS: Anion Gap 11 mEq/L (7-15); Blood Urea Nitrogen* 14 mg/dL (5-24); Carbon Dioxide* 24 mmol/L (20-32); Creatinine* 0.5 mg/dL (0.5-1.5); Estimated Glomerular Filt Rate 130 ml/min
[2024-05-10 02:16] LABS: Calcium* 9.5 mg/dL (8.4-10.6); Glucose* 124 mg/dL (60-115)
[2024-05-10 02:28] LABS: D Dimer Quantitative* 0.18 ug/ml (0.00-0.50)
[2024-05-10 02:45] VITALS: TEMP 36.7
[2024-05-10] MEDS: KETOROLAC 10 MG TABLET PO (02:45)
[2024-05-10 02:59] VITALS: BP 125/74; PULSE 79; RESP 18; TEMP 36.7; O2SAT 99
[2024-05-10 03:00] VITALS: BP 125/74; PULSE 79; RESP 18; TEMP 36.7
== END 2024-05-10 03:01 | disposition home or self-care (01) ==
PROVIDERS: Emergency Provider Family Medicine; PCP Obstetrics & Gynecology
DX: R07.89 Other chest pain (principal)
CPT/HCPCS: 36415; 71046; 80048; 84484; 85025; 85379; 93005; 99284; 99285; A9270

== ENCOUNTER 2024-05-22 14:25 | Outpatient (CLI) | payer MEDICAID, SELFPAY | END 2024-05-22 14:26 | disposition home or self-care (01) | LOC: NFLDREF 05-25 05:59 | PROVIDERS: PCP Obstetrics & Gynecology; Referring Provider Obstetrics & Gynecology; Visit Provider Physician Assistant Medical | DX: L65.9 Nonscarring hair loss, unspecified (principal) | CPT/HCPCS: 82728; 84439; 84443 ==